=== PATIENT | male | born 1950 | race Asian ===

== ENCOUNTER 2019-10-28 22:38 | Inpatient (IN) | payer OTHER ==
[~2019-10-28] VITALS: Ht 167.6 cm; Wt 68.0 kg
--- NOTE | 2019-10-28 22:40 | NUR ---
TEMPERATURE CHECKED - 99.2 F, STILL AWAKE, KEEPS ON TALKING. DAUGHTER AT THE BEDSIDE.
[2019-10-28 22:45] VITALS: BP 119/74
--- NOTE | 2019-10-28 22:56 | NUR ---
PT BIBA TO BED 09.
--- NOTE | 2019-10-28 23:19 | NUR ---
69 Y/O MALE BIBA C/O SUDDEN ONSET ABD PAIN WHILE PT WAS SLEEPING. PER FAMILY MEMBER PT STATES 7/10 SHARP CONSTANT PAIN. DENIES N/V/D. PER FAMILY MEMBER PT WAS SEEN SUNDAY AT [facility] AND DIAGNOSED WITH SEPSIS. PT CURRENTLY TAKING CIPRO. ABD SOFT, ROUND, NONTENDER TO PALP. BOWEL SOUNDS PRESENT X 4 QUAD. PT SITTING IN BED POSITIONED FOR COMFORT. FAMILY MEMBER AT BEDSIDE. VSS. MEDHX: DM, CERVICAL INJURY ALLERGIES: ERYTHROMYCIN
[2019-10-28] MEDS ORDERED: NACL 0.9% 2,000 ML IV ONE (23:33)
[2019-10-28] MEDS ORDERED: PIPERACILLIN/TAZOBACTAM 3.375 GM in DEXTROSE 5% 50 ML IV ONE (23:35)
[2019-10-28] MEDS ORDERED: LEVOFLOXACIN 750 MG/D5W PREMIX 150 ML IV ONE (23:35)
--- NOTE | 2019-10-28 23:39 | NUR ---
Dr. Arthur examining patient.
[2019-10-29 00:06] LABS: BASOPHILS % (AUTO) 0.4 % (0.0-2.0); EOSINOPHILS # (AUTO) 0.9 K/uL (0-0.4); EOSINOPHILS % (AUTO) 8.3 % (0.0-4.0); HEMOGLOBIN 11.1 g/dL (12.0-18.0); LYMPHOCYTES # (AUTO) 1.8 K/uL (2.0-11.5); LYMPHOCYTES % (AUTO) 16.6 % (20.5-51.1); MEAN CORPUSCULAR HEMOGLOBIN 22 pg (27-31); MEAN CORPUSCULAR HGB CONC 31 g/dL (33-37); MEAN CORPUSCULAR VOLUME 70.6 fL (80-94); MONOCYTES # (AUTO) 0.8 K/uL (0.8-1.0); MONOCYTES % (AUTO) 7.2 % (1.7-9.3); NEUTROPHILS # (AUTO) 7.4 K/uL (1.8-7.7); NEUTROPHILS % (AUTO) 67.5 % (42.2-75.2); PLATELET COUNT (AUTO) 379 K/uL (140-450); RED CELL DISTRIBUTION WIDTH 15.2 % (11.6-13.7); WHITE BLOOD COUNT (AUTO) 10.9 K/uL (4.8-10.8)
[2019-10-29 00:24] LABS: ANION GAP 11.9 (8-16); CARBON DIOXIDE 28.6 mmol/L (21-32); CREATININE 1.3 mg/dL (0.7-1.3); POTASSIUM 4.5 mmol/L (3.5-5.1)
[2019-10-29 00:30] LABS: ALBUMIN 2.9 g/dL (3.4-5.0); TOTAL BILIRUBIN 0.2 mg/dL (0.0-1.0)
--- NOTE | 2019-10-29 00:33 | NUR ---
RESTING IN BED WITH EYES CLOSED, VISIBLE RISE AND FALL OF THE CHEST. PT AROUSABLE TO NAME. DAUGHTER AT BEDSIDE. VSS. WILL CONTINUE TO MONITOR
[2019-10-29 00:37] LABS: PROTHROMBIN TIME 10.8 secs (10.8-13.4)
--- NOTE | 2019-10-29 00:39 | NUR ---
RADIOLOGY AT BEDSIDE
[2019-10-29] MEDS ORDERED: PIPERACILLIN/TAZOBACTAM 3.375 GM VIAL IV ONE ×2 (00:41→07:28)
--- NOTE | 2019-10-29 01:08 | NUR ---
RESTING WITH EYES CLOSED, NO C/O PAIN AT THIS TIME. DAUGHTER AT BEDSIDE. PT REMAINS ON MONITOR. VSS. WILL CONTINUE TO MONITOR.
[2019-10-29 01:46] LABS: APPEARANCE,URINE SL CLOUDY (CLEAR); BILIRUBIN,URINE NEGATIVE (NEGATIVE); BLOOD, URINE TRACE-I (NEGATIVE); COLOR,URINE YELLOW (YELLOW); LEUKOCYTE ESTERASE ,URINE 3+ (NEGATIVE); NITRITE, URINE NEGATIVE (NEGATIVE); UGLUCOSE NEGATIVE (NEGATIVE)
--- NOTE | 2019-10-29 02:15 | NUR ---
RESTING IN BED WITH EYES CLOSED, VISIBLE RISE AND FALL OF THE CHEST. PT AROUSABLE TO NAME. DAUGHTER AT BEDSIDE. VSS. WILL CONTINUE TO MONITOR
[2019-10-29 02:48] LABS: WBC,URINE TOO MANY TO COUNT /HPF (0-5)
[2019-10-29] MEDS ORDERED: ZIPRASIDONE MESYLATE 20 MG/ML VIAL IM ONE (03:15)
[2019-10-29] MEDS ORDERED: LORazepam 2 MG/ML VIAL IVP ONE (03:15)
[2019-10-29] MEDS ORDERED: diphenhydrAMINE 50 MG/ML VIAL IVP ONE (03:15)
[2019-10-29] MEDS ORDERED: WATER STERILE 10 ML MC ONE (03:38)
--- NOTE | 2019-10-29 04:00 | NUR ---
PT AGITATED. ATIVAN AND BENADRYL GIVEN.
[2019-10-29] MEDS ORDERED: DOCUSATE SODIUM 100 MG GELCAP PO PRN (04:45)
[2019-10-29] MEDS ORDERED: ONDANSETRON 4 MG/2 ML VIAL IM/IVP PRN (04:45)
[2019-10-29] MEDS ORDERED: ACETAMINOPHEN 325 MG TAB PO PRN (04:45)
[2019-10-29] MEDS ORDERED: HYDROcodone/APAP 5/325 MG 1 TAB TAB PO PRN (04:45)
[2019-10-29] MEDS ORDERED: INSULIN LISPRO SLIDING SCALE 100 UNITS/ML VIAL SUBQ PRN (05:20)
[2019-10-29] MEDS ORDERED: DEXTROSE 50% 50 ML SYR IVP PRN (05:20)
[2019-10-29] MEDS ORDERED: BACL20TA4 PO (05:27)
[2019-10-29] MEDS ORDERED: PRAV20TA2 PO (05:27)
[2019-10-29] MEDS ORDERED: DIT5 PO (05:27)
[2019-10-29] MEDS ORDERED: GABA300C PO (05:27)
[2019-10-29] MEDS ORDERED: SENN-90 PO (05:27)
[2019-10-29] MEDS ORDERED: METF500T2 PO (05:27)
--- NOTE | 2019-10-29 05:54 | NUR ---
RESTING IN BED WITH EYES CLOSED, VISIBLE RISE AND FALL OF THE CHEST. PT AROUSABLE TO NAME. DAUGHTER AT BEDSIDE. VSS. WILL CONTINUE TO MONITOR
--- NOTE | 2019-10-29 07:20 | NUR ---
PT HAS ALMANZA IN PLACE, PER RAVINDRA RN-ALMANZA INSERTED IN ER
--- NOTE | 2019-10-29 07:22 | NUR ---
BEDSIDE REPORT GIVEN TO PB KEYS. FOR CONTINUITY OF CARE.
[2019-10-29] MEDS: NACL 0.9% 1,000 ML IV SCH ×2 (07:30→21:40)
[2019-10-29] MEDS ORDERED: NACL 0.9% 1,000 ML IV ONE (07:35)
--- NOTE | 2019-10-29 07:43 | NUR ---
ACCU CHECK 120
--- NOTE | 2019-10-29 07:43 | NUR ---
PT SLEEPING. DAUGHTER BEDSIDE. NO DISTRESS NOTED. BOLUS STARTED
[2019-10-29] MEDS: BLOOD GLUCOSE MONITORING 1 DEV DEV FS SCH ×4 (07:44→21:00)
[2019-10-29] MEDS: PIPERACILLIN/TAZOBACTAM 3.375 GM in DEXTROSE 5% 50 ML IV SCH ×2 (08:00→15:44)
--- NOTE | 2019-10-29 08:27 | NUR ---
SACRAL PRESSURE WOUND NOTED UPON RE-POSITIONG PT. PICTURES TAKEN. PT NOTES TO HAVE A BRUISE TO L THIGH
[2019-10-29 08:38] LABS: MAGNESIUM 2.1 mg/dL (1.8-2.4); THYROID STIMULATING HORMONE 2.36 uIU/mL (0.34-3.74)
--- NOTE | 2019-10-29 09:08 | NUR ---
CALLED PHARMACY FOR 0900 MEDICATIONS
--- NOTE | 2019-10-29 09:15 | NUR ---
MORNING EDICATIONS CRUSHED AND GIVEN WITH APPLESAUCE. PT STILL VERY SLEEPY. PT TOLERATED WELL
[2019-10-29] MEDS ORDERED: CRUSHER, PILL MC ONE (09:27)
[2019-10-29] MEDS: LACTOBACILLUS RHAMNOSUS GG 1 EACH CAP PO SCH (09:30)
[2019-10-29] MEDS: SENNA 8.6 MG TAB PO SCH (09:30)
[2019-10-29] MEDS: OXYBUTYNIN 5 MG TAB PO SCH ×2 (09:31→21:20)
[2019-10-29] MEDS: GABAPENTIN 300 MG CAP PO SCH ×4 (09:31→21:21)
--- NOTE | 2019-10-29 09:49 | NUR ---
NADR, PAIN 0/10 USING FACE SCALE
--- NOTE | 2019-10-29 09:56 | NUR ---
RT AT BEDSIDE FOR EKG
--- NOTE | 2019-10-29 10:24 | NUR ---
CALLED US , STATES SHE WILL BE RIGHT OVER
--- NOTE | 2019-10-29 10:34 | NUR ---
US AT BEDSIDE
--- NOTE | 2019-10-29 10:46 | NUR ---
CONTACT DAUGHTERS: LIZY: [phone] NAYAN: [phone]
--- NOTE | 2019-10-29 11:01 | NUR ---
PUREE DIET ORDERED, CALLED DIETARY
--- NOTE | 2019-10-29 11:17 | NUR ---
ACCUCCHECK 120, PT EATING UPRIGHT IN BED. PUREE DIET
--- NOTE | 2019-10-29 12:30 | NUR ---
PT ADMITTED FROM ER AT THIS TIME. PT IN STABLE CONDITION AAOX3, COMING FROM HOME. PT VERY COMBATIVE. SPEAKS TAGALOG. RESPIRATIONS EVEN AND UNLABORED ON 2L O2 NC, CLEAR BREATH SOUNDS. IV IN PLACE L AC 20G PATENT AND ASYMPTOMATIC, SALINE FLUSHED. SKIN PRESENTS REDNESS IN SACRAL AREA. ALMANZA CATHETER IN PLACE. DAUGHTER AT THE BEDSIDE. SAFETY MEASURES IN PLACE. BED IN LOW POSITION. CALL LIGHT WITHIN REACH. WILL CONTINUE TO MONITOR.
--- NOTE | 2019-10-29 12:30 | NUR ---
Patient will be admitted to care of ARNOLD. Admited to TELE. Will go to room 122B. Belongings list completed. Report to MISSY KEYS. NACL 60MLS/HR RUNNING UPON ADMIT
[2019-10-29] MEDS: BACLOFEN 10 MG TAB PO SCH ×3 (13:00→21:21)
[2019-10-29 13:05] LABS: AMYLASE 53 U/L (25-115); LIPASE 110 U/L (73-393)
--- NOTE | 2019-10-29 14:34 | NUR ---
PT REFUSED SCHEDULED PO MEDICATIONS AT THIS TIME.
--- NOTE | 2019-10-29 15:48 | NUR ---
ADMINISTERED ZOSYN AT THIS TIME. PT COMBATIVE. DAUGHTER AT THE BEDSIDE. SAFETY MEASURES IN PLACE. CALL LIGHT WITHIN REACH. WILL CONTINUE TO MONITOR.
[2019-10-29 16:00] VITALS: BP 129/45
--- NOTE | 2019-10-29 16:38 | NUR ---
PT REFUSED BLOOD GLUCOSE MONITORING AT THIS TIME.
--- NOTE | 2019-10-29 18:02 | NUR ---
MEDICATIONS ADMINISTERED PER ORDER. PT TOLERATED WELL. NO DISTRESS NOTED. SAFETY MEASURES IN PLACE. CALL LIGHT WITHIN REACH. WILL CONTINUE TO MONITOR.
--- NOTE | 2019-10-29 19:00 | NUR ---
REPORT GIVEN TO NIGHT NURSE FOR CONTINUITY OF CARE.
--- NOTE | 2019-10-29 19:00 | NUR ---
RECIEVED REPORT FORM JAZMIN KEYS DAYSHIFT NURSE AT BEDSIDE FOR CONTINUITY OF CARE,PT IN STABLE CONDITION.
[2019-10-29 20:00] VITALS: BP 139/98
--- NOTE | 2019-10-29 20:00 | NUR ---
PT AOX1 IN BED HE WAS TURNED AND REPOSITIONED IN BED. PT HAS ALMANZA CATHETER INTACT AND DRAINING YELLOW URINE. S FOLLOWS: T 98.0 P 100 R 98% ON 2 LITERS VIA N/C. LUNG SOUNDS CLEAR. B/P 142/98 02 99% ON ROOM AIR. FAMILY AT BEDSIDE.
[2019-10-29] MEDS ORDERED: NON-FORMULARY ITEM (Pravastatin Sodium* (Pravachol*) 20 MG) PO SCH (21:00)
--- NOTE | 2019-10-29 21:00 | NUR ---
PT IN BED GIVEN ALL DUE MEDS PO W APPLESAUCE.
--- NOTE | 2019-10-29 22:20 | NUR ---
pt placed on CPAP of 5 cmh20. pt is tolerating cpap well. family at bedside. will continue to monitor. rn is aware.
[2019-10-30] VITALS: BP 142/98
--- NOTE | 2019-10-30 | NUR ---
PT HUNG ZOSYN ORDERED V/S FOLLOWS: T 97.1 P 99 R 99 02 99 B/P 142/98 . PT CONTINUES ON 2 LITERS VIA N/C. ALL FALLS PRECAUTIONS IN PLACE AND CALL MCCARTNEY IN REACH.
[2019-10-30] MEDS: PIPERACILLIN/TAZOBACTAM 3.375 GM in DEXTROSE 5% 50 ML IV SCH ×4 (00:18→23:35)
[2019-10-30] MEDS ORDERED: HYDRAGUARD CREAM TP ONE ×2 (01:00→06:32)
[2019-10-30] MEDS ORDERED: BISACODYL 10 MG SUPP RC PRN (01:00)
--- NOTE | 2019-10-30 02:30 | NUR ---
PT WAS TURNED, CHANGED AND REPOSITIONED IN BED NO S/O VOICED, PT CONTINUES ON C-PAPA.
[2019-10-30 04:00] VITALS: BP 114/75
--- NOTE | 2019-10-30 05:14 | NUR ---
pt taken of cpap and placed on nasal cannula of 2lnc
--- NOTE | 2019-10-30 06:00 | NUR ---
PT FINGERSTICK IS 129, NO HUMALOG COVERAGE NEEDED.ALL FALLS PRECAUTIONS IN PLACE AND CALL MCCARTNEY IN REACH.
[2019-10-30 06:06] LABS: BASOPHILS % (AUTO) 0.3 % (0.0-2.0); EOSINOPHILS # (AUTO) 0.7 K/uL (0-0.4); EOSINOPHILS % (AUTO) 6.9 % (0.0-4.0); HEMATOCRIT 33.5 % (36-52); HEMOGLOBIN 10.5 g/dL (12.0-18.0); LYMPHOCYTES # (AUTO) 1.8 K/uL (2.0-11.5); LYMPHOCYTES % (AUTO) 16.4 % (20.5-51.1); MEAN CORPUSCULAR HEMOGLOBIN 22 pg (27-31); MEAN CORPUSCULAR HGB CONC 31 g/dL (33-37); MONOCYTES # (AUTO) 0.9 K/uL (0.8-1.0); MONOCYTES % (AUTO) 8.7 % (1.7-9.3); NEUTROPHILS # (AUTO) 7.3 K/uL (1.8-7.7); NEUTROPHILS % (AUTO) 67.7 % (42.2-75.2); PLATELET COUNT (AUTO) 344 K/uL (140-450); RED BLOOD CELL COUNT(AUTO) 4.78 MIL/uL (4.20-6.10); RED CELL DISTRIBUTION WIDTH 15.5 % (11.6-13.7); WHITE BLOOD COUNT (AUTO) 10.7 K/uL (4.8-10.8)
[2019-10-30] MEDS: BLOOD GLUCOSE MONITORING 1 DEV DEV FS SCH ×4 (06:30→20:59)
[2019-10-30 06:49] LABS: ANION GAP 17.2 (8-16); CARBON DIOXIDE 22.7 mmol/L (21-32); CREATININE 1.4 mg/dL (0.7-1.3); POTASSIUM 3.9 mmol/L (3.5-5.1)
[2019-10-30 06:56] LABS: MAGNESIUM 1.9 mg/dL (1.8-2.4); PHOSPHORUS 2.4 mg/dL (2.5-4.9)
--- NOTE | 2019-10-30 07:15 | NUR ---
RECEIVED REPORT FROM FLUORESCENT SOLUTION MIXER NURSE RAMON FOR CONTINUITY OF CARE. PT IN STABLE CONDITION. RESPIRATIONS EVEN AND UNLABORED. IV INTACT AND PATENT. SAFETY MEASURES IN PLACE. BED IN LOW POSITION. BED ALARM ON. CALL LIGHT AT BEDSIDE. WILL CONTINUE TO MONITOR.
[2019-10-30 08:00] VITALS: BP 132/71
[2019-10-30] MEDS ORDERED: metFORMIN 500 MG TAB PO SCH (09:00)
--- NOTE | 2019-10-30 09:45 | NUR ---
GAVE ORDERED DUE MEDICATIONS AT THIS TIME. PT TOLERATED WELL. BED IN LOW POSITION. BED ALARM ON. CALL LIGHT AT BEDSIDE. WILL CONTINUE TO MONITOR.
[2019-10-30] MEDS: GABAPENTIN 300 MG CAP PO SCH ×4 (09:48→20:41)
[2019-10-30] MEDS: BACLOFEN 10 MG TAB PO SCH ×4 (09:49→20:41)
[2019-10-30] MEDS: SENNA 8.6 MG TAB PO SCH (09:49)
[2019-10-30] MEDS: LACTOBACILLUS RHAMNOSUS GG 1 EACH CAP PO SCH (09:49)
[2019-10-30] MEDS: OXYBUTYNIN 5 MG TAB PO SCH ×2 (09:49→20:41)
--- NOTE | 2019-10-30 10:14 | NUR ---
CHANGED LINEN AND CLEANED PT AT THIS TIME. PT TOLERATED WELL. RESPIRATIONS EVEN AND UNLABORED. BED IN LOW POSITION. BED ALARM ON. CALL LIGHT AT BEDSIDE. WILL CONTINUE TO MONITOR.
[2019-10-30 12:00] VITALS: BP 129/79
--- NOTE | 2019-10-30 12:48 | NUR ---
PT EATING LUNCH WITH ASSIST AT THIS TIME. RESPIRATIONS EVEN AND UNLABORED. BED IN LOW POSITION. BED ALARM ON. CALL LIGHT AT BEDSIDE. WILL CONTINUE TO MONITOR.
[2019-10-30] MEDS ORDERED: SODIUM PHOS / POTASSIUM PHOS 1 PKT PDR PO SCH (14:00)
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
--- NOTE | 2019-10-30 14:12 | NUR ---
PT SITTING UP IN BED TALKING TO FAMILY MEMBER. RESPIRATIONS EVEN AND UNLABORED. BED IN LOW POSITION. BED ALARM ON. CALL LIGHT AT BEDSIDE. WILL CONTINUE TO MONITOR.
[2019-10-30] MEDS: NACL 0.9% 1,000 ML IV SCH (15:13)
--- NOTE | 2019-10-30 15:31 | NUR ---
10/30/19 RD INITIAL ASSESSMENT COMPLETED PLEASE REFER TO NUTRITION ASSESSMENT UNDER CARE ACTIVITY FOR ESTIMATED NUTRITIONAL NEEDS. 1. RECOMMEND A [facility] 60GM PUREE DIET TOLERATED 2. RD TO FOLLOW-UP 3-5 DAYS, MODERATE RISK CINDY KUMAR RD
[2019-10-30 16:00] VITALS: BP 114/58
--- NOTE | 2019-10-30 16:58 | NUR ---
PT SITTING UP IN BED TALKING WITH FAMILY MEMBER. RESPIRATIONS EVEN AND UNLABORED. BED IN LOW POSITION. BED ALARM ON. CALL LIGHT AT BEDSIDE. WILL CONTINUE TO MONITOR.
--- NOTE | 2019-10-30 19:36 | NUR ---
GAVE REPORT TO MASTER PLANNER NURSE MYAH FOR CONTINUITY OF CARE. PT IN STABLE CONDITION.
--- NOTE | 2019-10-30 19:37 | NUR ---
RECD. SITTING ON BED, AWAKE, A/OX4. ON AT 2LITERS VIA N/C. 02 SAT - 99%. RESPIRATION EVEN AND UNLABORED. TALKS A LOT. RIGHT HAND CONTRACTED. NS AT 60 ML/HR INFUSING, LEFT AC G20. F/C PATENT DRAINING CLEAR CHRIS COLORED URINE, BEDBOUND. PLAN OF CARE FOR THE SHIFT DISCUSSED. VERBALIZED UNDERSTANDING. DENIES PAIN 0/10.
[2019-10-30 20:00] VITALS: BP 97/49
--- NOTE | 2019-10-30 20:30 | NUR ---
WITH CONFUSION, SEEING THINGS IN THE MIRROR. FAMILY AT THE BEDSIDE.
[2019-10-30] MEDS: SIMVASTATIN 10 MG TAB PO SCH (20:40)
--- NOTE | 2019-10-30 20:40 | NUR ---
TEMPERATURE CHECKED - 101.5 F, MEDICATED WITH TYLENOL ORDERED BY MD. COOLING MEASURES GIVEN.
--- NOTE | 2019-10-30 23:36 | NUR ---
ADMINISTERED SCHEDULED IV ABX ORDERED. RT AT BEDSIDE, PT ON BIPAP STATING HE COULD BREATHE BETTER. PT FAMILY MEMBER AT BEDSIDE, PT TEACHING GIVEN, FAMILY MEMBER VERBALIZED UNDERSTANDING, PT STILL A LITTLE CONFUSED CONVERSES MORE CLEAR NOW. PT MADE COMFORTABLE, PT'S NEEDS MET AT THIS TIME.
--- NOTE | 2019-10-30 23:39 | NUR ---
Patient's Plan of Care was discussed and reviewed with TRACK SERVICE WORKER: MYAH CAROLINA.
[2019-10-31] VITALS (7 sets, daily range): BP systolic 87–137; BP diastolic 43–65
--- NOTE | 2019-10-31 | NUR ---
SLEEPING COMFORTABLY WITH BIPAP ON. NO FEVER NOTED 98.6 F.
--- NOTE | 2019-10-31 00:32 | NUR ---
CHANGED MODE FROM CPAP TO BiPAP BECAUSE PT STOPS AND STARTS BREATHING DURING SLEEP. FAMILY AND RN AT BEDSIDE. DR. SELF WAS NOTIFIED.
[2019-10-31] MEDS: NACL 0.9% 1,000 ML IV SCH ×3 (02:37→19:57)
--- NOTE | 2019-10-31 03:21 | NUR ---
INCREASED IPAP TO 10 CMH20 DUE TO LOW TIDAL VOLUMES LESS THAN 200S AND MINUTE VENTILATION LESS THAN 3L/MIN
--- NOTE | 2019-10-31 04:00 | NUR ---
STILL SLEEPING SOUNDLY WITH BIPAP ON. AFEBRILE - 97.8 F.
[2019-10-31] MEDS ORDERED: Z-GUARD PASTE TP PRN (04:05)
[2019-10-31] MEDS ORDERED: MILD SOAP AND WATER TP PRN (04:05)
[2019-10-31 05:58] LABS: BASOPHILS # (AUTO) 0.1 K/uL (0.00-0.22); BASOPHILS % (AUTO) 0.5 % (0.0-2.0); EOSINOPHILS # (AUTO) 0.7 K/uL (0-0.4); EOSINOPHILS % (AUTO) 5.2 % (0.0-4.0); HEMATOCRIT 31.7 % (36-52); HEMOGLOBIN 9.6 g/dL (12.0-18.0); LYMPHOCYTES # (AUTO) 2.9 K/uL (2.0-11.5); LYMPHOCYTES % (AUTO) 20.5 % (20.5-51.1); MEAN CORPUSCULAR HEMOGLOBIN 22 pg (27-31); MEAN CORPUSCULAR HGB CONC 30 g/dL (33-37); MEAN CORPUSCULAR VOLUME 71.3 fL (80-94); MONOCYTES # (AUTO) 1.4 K/uL (0.8-1.0); MONOCYTES % (AUTO) 10.3 % (1.7-9.3); NEUTROPHILS # (AUTO) 8.9 K/uL (1.8-7.7); NEUTROPHILS % (AUTO) 63.5 % (42.2-75.2); PLATELET COUNT (AUTO) 289 K/uL (140-450); RED BLOOD CELL COUNT(AUTO) 4.44 MIL/uL (4.20-6.10); RED CELL DISTRIBUTION WIDTH 15.6 % (11.6-13.7)
[2019-10-31] MEDS: BLOOD GLUCOSE MONITORING 1 DEV DEV FS SCH ×4 (06:37→20:10)
[2019-10-31] MEDS: PIPERACILLIN/TAZOBACTAM 3.375 GM in DEXTROSE 5% 50 ML IV SCH (06:49)
--- NOTE | 2019-10-31 07:00 | NUR ---
STILL SLEEPING COMFORTABLY. ABLE TO SLEEP WELL DURING THE NIGHT. AFEBRILE AT THIS TIME. WILL ENDORSE TO AM SHIFT NURSE FOR CONTINUITY OF CARE.
[2019-10-31 07:09] LABS: ANION GAP 13.2 (8-16); CARBON DIOXIDE 25.8 mmol/L (21-32); CREATININE 1.6 mg/dL (0.7-1.3)
[2019-10-31 07:15] LABS: MAGNESIUM 1.9 mg/dL (1.8-2.4); PHOSPHORUS 5.1 mg/dL (2.5-4.9)
--- NOTE | 2019-10-31 07:25 | NUR ---
RECEIVED REPORT FROM FURNACE PROCESS PLANT OPERATOR NURSE AT BEDSIDE FOR CONTINUITY OF CARE. PATIENT CURRENTLY ON BIBAP SLEEPING COMFORTABLY. 02 SAT - 99%. RESPIRATION EVEN AND UNLABORED. RIGHT HAND CONTRACTED. NO S/S OF SOB OR DISTRESS NOTED, FLACC-0. IV TO LEFT AC #20, INFUSING NS AT 80 ML/HR INFUSING. F/C PATENT DRAINING TO GRAVITY WITH CLEAR YELLOW URINE. PATIENT IS BEDBOUND, DAUGHTER LIZY AT BEDSIDE. UPDATED BOARD, UPDATED DAUGHTER WITH PLAN OF CARE, SHE VERBALIZED UNDERSTANDING. SAFETY PRECAUTIONS IN PLACE, BED IN LOWEST POSITION WITH ALARM AND BRAKES ON, CALL LIGHT WITHIN REACH, WILL CONTINUE TO MONITOR PATIENT.
--- NOTE | 2019-10-31 08:25 | NUR ---
PATIENT UNRESPONSIVE, HARD TO AWAKEN AFTER TAKEN OFF BIBAP SO PATIENT CAN EAT BREAKFAST. CALLED DR. BOUDREAUX. DR. BOUDREAUX AT BEDSIDE TO ASSESS THE PATIENT. HR 63, O2 100% ON 2L O2 VIA NC, BP 89/60, TEMP 97.6. PATIENT FLINCHES TO PAIN. FAMILY AT BEDSIDE. WILL WAIT FOR NEW ORDERS.
[2019-10-31] MEDS ORDERED: NACL 0.9% 500 ML IV SCH (08:45)
[2019-10-31] MEDS: SENNA 8.6 MG TAB PO SCH (09:00)
[2019-10-31] MEDS ORDERED: WOUND CARE PREPARATION 178 ML SPR TP SCH (09:00)
[2019-10-31] MEDS: LACTOBACILLUS RHAMNOSUS GG 1 EACH CAP PO SCH (09:00)
[2019-10-31] MEDS: OXYBUTYNIN 5 MG TAB PO SCH ×2 (09:00→20:07)
--- NOTE | 2019-10-31 09:00 | NUR ---
0900 MEDICATIONS NOT GIVEN. PATIENT STILL ONLY AROUSABLE TO STERNAL RUB. OPENS EYES SPONTANEOUSLY AT DIFFERENT INTERVALS, MOVES BILATERAL UPPER EXTREMITIES FOR A FEW SECONDS THEN DRIFTS OFF BACK TO SLEEP. BP 127/58 HR 63. DAUGHTERS AND AT BEDSIDE, WILL CONTINUE TO MONITOR PATIENT.
--- NOTE | 2019-10-31 09:00 | NUR ---
P.T.NOTES UNABLE TO DO P.T. EVAL AT THIS TIME DUE TO PATIENT IS UNRESPONSIVE PER NURSE [place]. PLAN: WE'LL FOLLOW UP AGAIN WHEN HE IS MORE AWAKE AND ALERT.
--- NOTE | 2019-10-31 09:30 | NUR ---
DR BOUDREAUX IN TO SPEAK TO THE PATIENT'S FAMILY.
--- NOTE | 2019-10-31 10:15 | NUR ---
PATIENT WOKE UP, SPEECH WAS INCOMPREHENSIBLE, THEN DRIFTED OFF BACK TO SLEEP. FAMILY AT BEDSIDE. PATIENT HAS NO COMPLAINTS AT THIS TIME. SAFETY PRECAUTIONS IN PLACE, CALL LIGHT WITHIN REACH, WILL CONTINUE TO MONITOR PATIENT.
--- NOTE | 2019-10-31 11:30 | NUR ---
WOUND CARE EVALUATION NOTES: REASON FOR EVALUATION: SACRAL WOUND WOUND ASSESSMENT COMPLETED ON THIS 69 Y/O MALE ADMITTED TO [facility] UNIT FOR UTI. PATIENT IS FROM HOME. PAST MEDICAL HISTORY INCLUDES SPINAL CORD INJURY WITH PARAPLEGIA, CHRONIC UTI, DIABETES, OBSTRUCTIVE SLEEP APNEA, DYSPEPSIA, URINARY RETENTION, RENAL STONES. ALL ABOVE INFORMATION WAS OBTAINED FROM THE ADMISSION H&P. LABS ARE WBC: 14.0, H/H:9.6/31.7, GLUCOSE:147, ALBUMIN: 2.9. PATIENT IS AWAKE, ALERT, ORIENTED TO PERSON, VERBAL WITH CONFUSION AT THIS TIME, ORAL MUCOSAL MEMBRANES DRY. ALMANZA CATHETER IN PLACE, INTACT. REQUIRES ASSISTANCE WITH TURNING. PLAN OF CARE AND PRESSURE PREVENTATIVE MEASURES DISCUSSED WITH PATIENT, FAMILY MEMBERS AT BEDSIDE, AND WITH PRIMARY RN. PATIENT ADMITTED WITH SACRAL WOUND INCONTINENT ASSOCIATED DERMATITIS AND RIGHT THIGH INCONTINENT ASSOCIATED DERMATITIS. COMORBIDITIES RELATED TO FURTHER SKIN BREAKDOWN SUCH IMPAIRED OR DECREASED MOBILITY AND DECREASED FUNCTIONAL ABILITY, LOW ALBUMIN LEVEL, S/S OF DEHYDRATION, AND HX OF DM. INTEGUMENTARY: - SACROCOCCYX INCONTINENT ASSOCIATED DERMATITIS MEASURING 6 X 9 WITH SUPERFICIAL DEPTH, BLANCHABLE REDNESS, MINIMAL SEROUS DRAINAGE, NO ODOR, NO S/S OF INFECTION. EZRA-WOUND SKIN IS DENUDED, RED, NO DRAINAGE, NO ODOR, NO S/S OF INFECTION. - RIGHT POSTERIOR THIGH INCONTINENT ASSOCIATED DERMATITIS MEASURING 5 X 4 WITH SUPERFICIAL DEPTH, BLANCHABLE REDNESS, NO DRAINAGE, NO ODOR, NO S/S OF INFECTION. EZRA-WOUND SKIN IS DENUDED, RED, NO DRAINAGE, NO ODOR, NO S/S OF INFECTION. RECOMMENDATIONS: - CLEANSE SACROCOCCYX IAD WOUND WITH WOUND CLEANSER, PAT DRY, APPLY Z-GUARD TO EZRA-WOUND SKIN, AND COVER WITH OPTIFOAM BID AND PRN IF SOILED. - CLEANSE RIGHT POSTERIOR THIGH WOUND WITH WOUND CLEANSER, PAT DRY, APPLY Z-GUARD TO EZRA-WOUND SKIN, AND LEAVE OPEN TO AIR BID AND PRN IF SOILED. - TURN AND REPOSITION PATIENT Q2H TO LEFT AND RIGHT SIDE TO OFFLOAD SACRALCOCCYX. - ASSESS AND MONITOR SKIN CONDITION DURING POSITION CHANGE. PLEASE PAY ATTENTION TO SACRALCOCCYX AND HEELS. - KEEP SKIN DRY AND CLEAN AT ALL TIMES. - RD CONSULT RECOMMENDATIONS DISCUSSED WITH PRIMARY RN AND DR. BOUDREAUX. WILL FOLLOW-UP PAITENT Q7-10 DAYS AND PRN. PLEASE CONTACT WOUND CARE NURSE FOR ANY CONCERNS AND CHANGES IN WOUND CONDITION.
--- NOTE | 2019-10-31 11:40 | NUR ---
OPERATIONS SECTION MANAGER ISHAAN IN TO EVALUATE PATIENT. WILL WAIT FOR HIS ASSESSMENT.
[2019-10-31] MEDS: PIPERACILLIN/TAZOBACTAM 2.25 GM in DEXTROSE 5% 50 ML IV SCH ×2 (12:32→20:16)
--- NOTE | 2019-10-31 13:45 | NUR ---
PATIENT GIVEN SPONGE BATH, PATIENT TURNED AND CHANGED, PATIENT REPOSITIONED FOR COMFORT AND TO OFFLOAD PRESSURE AREAS. AND DAUGHTER AT BEDSIDE. WILL CONTINUE TO MONITOR PATIENT.
--- NOTE | 2019-10-31 14:10 | NUR ---
ORAL CARE GIVEN. PATIENT TOLERATED IT. THICK SECRETIONS NOTED. AT BEDSIDE.
--- NOTE | 2019-10-31 14:30 | NUR ---
SPOKE TO YOUSUF, PASSED ON DAUGHTER'S AMMY'S PHONE NUMBER, PATIENT' DAUGHTER WANTED TO SPEAK TO YOUTH MINISTER OR CASE MANAGEMENT ABOUT DISCHARGE PLANNING.
--- NOTE | 2019-10-31 17:00 | NUR ---
BLOOD SUGAR 113, NO COVERAGE NEEDED. PATIENT STILL CONFUSED, HAS OUTBURSTS IN TAGALOG, THEN SILENCE. SAFETY PRECAUTIONS IN PLACE, CALL LIGHT WITHIN REACH, WILL CONTINUE TO MONITOR PATIENT.
--- NOTE | 2019-10-31 19:25 | NUR ---
REPORT GIVEN AT BEDSIDE FOR CONTINUITY OF CARE TO SCRUFF WORKER NURSE. PATIENT'S AT BEDSIDE.
--- NOTE | 2019-10-31 19:30 | NUR ---
RECEIVED IN BED CONFUSED. TALKING WITH PEOPLE NOT AROUND. SHOUTING AND SHOUTING TO IMAGINARY PEOPLE. CARE PLANS FOR THE NIGHT DISCUSSED WITH FAMILY MEMBERS( AND DAUGHTERS) CALL LIGHT WITH IN REACH. TELEMETRY MONITORING. IVF SITE INTACT AND WITH GOOD BLOOD RETURN. WILL BE TURNED TO SIDES Q 2H. ENCOURAGED FAMILY MEMBERS TO KEEP PT. ON TURNED SIDE.
[2019-10-31] MEDS: SIMVASTATIN 10 MG TAB PO SCH (20:07)
--- NOTE | 2019-10-31 22:30 | NUR ---
PT. SLEEPS AND WAKES UP EASILY. DAUGHTERS AND IN HERE ATTENDING TO PT. NO COMPLAINTS DONE.
[2019-11-01] VITALS: BP 149/78
[2019-11-01] MEDS: WOUND CARE PREPARATION 178 ML SPR TP SCH ×2 (01:00→13:00)
[2019-11-01] MEDS: Z-GUARD PASTE TP SCH ×2 (01:47→13:00)
--- NOTE | 2019-11-01 01:59 | NUR ---
DAUGHTER AT BEDSIDE WATCHING OVER FATHER/PT. NO COMPLAINTS DONE. PT. TURNED TO SIDES Q 2H BY CNAS. ENCOURAGED TO STAY ON SIDE TURNED. PT. AT THIS TIME AWAKE AND CONFUSED. TALKING AND TALKING WITH IMAGINARY PEOPLE AROUND. CALL LIGHT WITH INREACH. ENCOURAGED TO CALL FOR ANY HELP SHE MIGHT NEED. TELEMETRY MONITORING.
--- NOTE | 2019-11-01 04:00 | NUR ---
PT. BEEN TALKING AND TALKING. SLEEPS ONLY A LITTLE AND WAKES UP FOR A LONG TIME. CONFUSED. DAUGHTER AT BEDSIDE WATCHING OVER HIM. TELEMETRY MONITORING. PT. REFUSED TO BE TOUCHED AT THIS TIME. REFUSING VITAL SIGNS. DAUGHTER TRIED TO EXPLAIN BUT PT. REALLY VERY CONFUSED AND USES ARMS TO PUSH MOLD FORMS BUILDER.
[2019-11-01] MEDS: PIPERACILLIN/TAZOBACTAM 2.25 GM in DEXTROSE 5% 50 ML IV SCH ×3 (05:12→20:34)
[2019-11-01] MEDS: BLOOD GLUCOSE MONITORING 1 DEV DEV FS SCH ×4 (05:19→20:50)
--- NOTE | 2019-11-01 06:26 | NUR ---
BLOOD WORKS NOT TAKEN BY AUTO CARE CENTER MANAGER RT PT. VERY CONFUSED AND AGGRESSIVE. TRIES TO PUSH CARE GIVERS AWAY. DAUGHTER AT BEDSIDE AND AWARE THAT BLOOD NOT TAKEN. "LET'S WAIT TILL MY SISTER IS HERE TO TALK TO HIM"
--- NOTE | 2019-11-01 07:20 | NUR ---
RECEIVE REPORT FROM NIGHT NURSE, PT AA0X2, PT CONFUSED AND UPSET, PT'S DAUGHTER AT BEDSIDE, PT IV SITE INTACT, RUNNING, NS AT 80 ML/H, LAC 22G, UPDATE WHITEBOARD AND INTRODUCE SELF, SAFETY MEASURES IN PLACE, CALL LIGHT WITHIN REACH.
[2019-11-01 08:00] VITALS: BP 177/87
[2019-11-01] MEDS: LACTOBACILLUS RHAMNOSUS GG 1 EACH CAP PO SCH (09:00)
[2019-11-01] MEDS: OXYBUTYNIN 5 MG TAB PO SCH ×2 (09:03→20:34)
[2019-11-01] MEDS: SENNA 8.6 MG TAB PO SCH (09:03)
[2019-11-01] MEDS: NACL 0.9% 1,000 ML IV SCH ×3 (09:04→23:40)
[2019-11-01] MEDS ORDERED: BISACODYL 10 MG SUPP RC PRN (09:40)
--- NOTE | 2019-11-01 10:00 | NUR ---
PT OFF UNIT FOR CT, PT IS STABLE, DAUGHTER ACCOMPANY PHARMACY RESIDENT.
--- NOTE | 2019-11-01 10:34 | NUR ---
GAVE PT MEDICATION, PT TOLERATED WELL, PT IS STABLE, DAUGHTER AT BEDSIDE, CALL WITHIN REACH.
--- NOTE | 2019-11-01 11:09 | NUR ---
PT ASLEEP IN BED, NO SIGNS OF DISTRESS NOTED, RESPIRATIONS ARE EVEN AND UNLABORED ON 2L NC, DAUGHTER AT BEDSIDE, CALL LIGHT WITHIN REACH.
[2019-11-01 12:00] VITALS: BP 158/79
--- NOTE | 2019-11-01 13:00 | NUR ---
PT IS STABLE, NO SIGNS OF DISTRESS NOTED, FAMILY AT BEDSIDE, CALL LIGHT WITHIN REACH.
--- NOTE | 2019-11-01 15:05 | NUR ---
PT RESTING IN BED, TALKING TO HIS FAMILY MEMBER, PT IS STABLE, RESPIRATIONS ARE EVEN AND UNLABORED ON ROOM AIR, CALL LIGHT WITHIN REACH.
[2019-11-01 16:00] VITALS: BP 148/72
--- NOTE | 2019-11-01 19:05 | NUR ---
GAVE REPORT TO NIGHT NURSE FOR CONTINUITY OF CARE, PT IS STABLE.
--- NOTE | 2019-11-01 19:30 | NUR ---
RECEIVED BEDSIDE REPORT FROM AM SHIFT RN FOR PT'S CONTINUITY OF CARE. PT IS AAOX1, FAMILY MEMBERS AT BEDSIDE, IS ON SENIOR JAVA ENGINEER, IS ON 2L O2 VIA NC, HAS LEFT AC 20G WITH NS AT 80ML/HR, ALMANZA CATH IN PLACE, DENIES ANY PAIN AT THIS TIME. REORIENTED PT AND FAM MEMBERS TO HOSPITAL SURROUNDINGS AND GLASS SCULLION ROUTINE, THEY VERBALIZED UNDERSTANDING. SAFETY MEASURES IN PLACE, AND CALL LIGHT IS WITHIN REACH. WILL MONITOR PT THROUGHOUT SHIFT.
[2019-11-01 20:00] VITALS: BP 120/63
[2019-11-01] MEDS: SIMVASTATIN 10 MG TAB PO SCH (20:34)
--- NOTE | 2019-11-01 20:50 | NUR ---
VS CHECKED AND CHARTED. BLOOD GLUCOSE CHECKED AND CHARTED. NO COVERAGE NEEDED. ADMINISTERED SCHEDULED MEDICATIONS ORDERED, PT TOLERATED THEM WELL. PT TEACHING GIVEN. WILL CONTINUE TO MONITOR PT.
--- NOTE | 2019-11-01 22:30 | NUR ---
MADE ROUNDS. PT AWAKE TALKING TO FAMILY MEMBERS. PT SHOWS NO SIGNS OF DISTRESS. WILL CONTINUE TO MONITOR PT.
[2019-11-02] VITALS: BP 168/75
--- NOTE | 2019-11-02 00:30 | NUR ---
VS CHECKED AND CHARTED. PT STILL AWAKE WITH NO SIGNS OF DISTRESS. PT STILL CONFUSED, REORIENTED TO HOSPITAL ENVIRONMENT. PT VERBALIZED UNDERSTANDING.
[2019-11-02] MEDS: Z-GUARD PASTE TP SCH ×2 (01:22→13:00)
--- NOTE | 2019-11-02 01:22 | NUR ---
PER PT'S DAUGHTER, PT HAS NOT HAD ANY BM SINCE 10/28. NOTIFIED MD. ADMINISTERED SCHEDULED MEDICATIONS ORDERED. PT'S LINENS CHANGED AND REPOSITIONED. PT TOLERATED THEM WELL. PT TEACHING GIVEN ALONG WITH FAMILY MEMBERS, THEY VERBALIZED UNDERSTANDING. WILL CONTINUE TO MONITOR PT.
[2019-11-02] MEDS: WOUND CARE PREPARATION 178 ML SPR TP SCH ×2 (01:23→13:00)
[2019-11-02] MEDS ORDERED: POLYETHYLENE GLYCOL 17 GM/PKT PO SCH (01:30)
[2019-11-02] MEDS ORDERED: BISACODYL 10 MG SUPP RC SCH (01:30)
[2019-11-02 04:00] VITALS: BP 166/71
--- NOTE | 2019-11-02 04:30 | NUR ---
PT STILL AWAKE, TALKING WITH FAMILY MEMBERS. ADMINISTERED SCHEDULED IV ABX ORDERED. PT WAS CHANGED AND REPOSITIONED. VS CHECKED AND CHARTED. PT HAS PLEASANT AND COOPERATIVE DEMEANOR. WILL CONTINUE TO MONITOR PT.
[2019-11-02] MEDS: PIPERACILLIN/TAZOBACTAM 2.25 GM in DEXTROSE 5% 50 ML IV SCH ×2 (04:55→12:50)
--- NOTE | 2019-11-02 05:30 | NUR ---
ADMINISTERED SCHEDULED IV ABX ORDERED. PT REFUSING TO BE TOUCHED. PT'S DAUGHTER TRIED TO CALM HIM DOWN. MADE SMALL TALKS WITH PT, PT SEEMED TO CALMED DOWN AND BECAME PLEASANT. MADE PT COMFORTABLE, WILL CONTINUE TO MONITOR PT.
--- NOTE | 2019-11-02 06:45 | NUR ---
PT AWAKE WITH NO SIGNS OF DISTRESS. PT'S FAMILY MEMBERS AT BEDSIDE. WILL ENDORSE TO AM SHIFT RN FOR PT'S CONTINUITY OF CARE.
--- NOTE | 2019-11-02 07:06 | NUR ---
RECEIVE BEDSIDE REPORT FROM NIGHT NURSE, PT IS STABLE, ON 2L NC, RESPIRATIONS ARE EVEN AND UNLABORED, AA0X1, IV SITE INTACT, LAC 220G, RUNNING NS AT 80 ML/H, ALMANZA CATHETER DRAINING YELLOW URINE, INTRODUCE SELF, WHITE BOARD UPDATED, SAFETY MEASURES IN PLACE, FAMILY AT BEDSIDE, CALL LIGHT WITHIN REACH.
[2019-11-02] MEDS: BLOOD GLUCOSE MONITORING 1 DEV DEV FS SCH ×3 (07:56→17:16)
[2019-11-02 08:00] VITALS: BP 150/68
[2019-11-02] MEDS ORDERED: DOCUSATE SODIUM 100 MG GELCAP PO SCH (09:00)
[2019-11-02] MEDS: LACTOBACILLUS RHAMNOSUS GG 1 EACH CAP PO SCH (09:35)
[2019-11-02] MEDS: SENNA 8.6 MG TAB PO SCH (09:35)
[2019-11-02] MEDS: OXYBUTYNIN 5 MG TAB PO SCH (09:35)
--- NOTE | 2019-11-02 09:45 | NUR ---
GAVE PT ORDERED MEDICATION, EDUCATION GIVEN, PT TOLERATED WELL WITH APPLESAUCE. HELD HEPARIN DR WILLARD SAID IT WAS OKAY TO HOLD SINCE PT HAS NOT ALLOWED BLOOD WORK TO CHECK PLATELET COUNT, PT IS STABLE, FAMILY AT BEDSIDE.
--- NOTE | 2019-11-02 11:05 | NUR ---
PT SIDE LYING HE IS GETTING CHANGED BY , PT IS STABLE, NO SIGNS OF DISTRESS NOTED, CALL LIGHT WITHIN REACH AND FAMILY AT BEDSIDE.
[2019-11-02 12:00] VITALS: BP 126/69
--- NOTE | 2019-11-02 12:02 | NUR ---
PT REFUSED ALL VITAL SIGNS EXCEPT BLOOD PRESSURE, PT REFUSED BLOOD GLUCOSE CHECK.
[2019-11-02] MEDS: NACL 0.9% 1,000 ML IV SCH (12:49)
--- NOTE | 2019-11-02 13:00 | NUR ---
PT RESTING IN BED, NO SIGNS OF DISTRESS NOTED, PT IS STABLE, CALL LIGHT WITHIN REACH.
--- NOTE | 2019-11-02 15:00 | NUR ---
PT RESTING IN BED, NO SIGNS OF DISTRESS NOTED, FAMILY AT BEDSIDE, CALL LIGHT WITHIN REACH.
[2019-11-02 15:11] VITALS: BP 150/68
[2019-11-02] MEDS ORDERED: LISI10TA11 PO (15:51)
[2019-11-02] MEDS ORDERED: PIPE50SO5 IV (15:53)
[2019-11-02 16:00] VITALS: BP 143/66
--- NOTE | 2019-11-02 16:00 | NUR ---
CALLED [facility] AND GAVE REPORT TO NAYELY, PT IS DUE TO BE TRANSPORT AT 1900. NOTIFIED FAMILY AT BEDSIDE AND CALLED DAUGHTER AMMY TO INFORM THEM THE PT WOULD BE TRANSFERRING TO [facility].
--- NOTE | 2019-11-02 18:17 | NUR ---
PT IN BED EATING, FEEDING PT, PT IS STABLE NO SIGNS OF DISTRESS NOTED, CALL LIGHT WITHIN REACH.
--- NOTE | 2019-11-02 19:24 | NUR ---
GAVE REPORT TO NIGHT NURSE FOR CONTINUITY OF CARE, PT IS STABLE
--- NOTE | 2019-11-02 19:30 | NUR ---
RECEIVED FROM AM RN IN BED AWAKE AND ALERT. FAMILY MEMBERS IN HERE AND WAITING FOR TRANSPORT FOR TRANSFER TO ANOTHER FACILITY. [facility] FOR TRANSFER DONE BY JULIÁN RN . REPORT TO FACILITY /SNF GIVEN BY JULIÁN RN TO [facility]ELOP[facility] EXECUTIVE AT SNF. PT. QUIET AND AWAKE. FAMILY MEMBERS NO COMPLAINTS.
--- NOTE | 2019-11-02 20:00 | NUR ---
TRANSPORT INHERE TO [facility] PT. FOR TRANSFER. [facility]KS WITH THEM. DAUGHTER IN HERE TO FOLLOW PT. FOR TRANSFER. NO BELONGINGS LEFT BEHIND. TRANSFER PAPER WORKS TO SNF WITH PARAMEDICS. FAMILY MEMBERS NO COMPLAINTS DONE. ARM BAND DISPOSED OF PROPERLY. ENCOURAGED FAMILY MEMBERS IF WITH QUESTIONS TO CALL ME . "OK"
== END 2019-11-02 20:30 | DRG 871 ==
LOC: MED 22:38 → MTU 10-29 05:13
PROVIDERS: ADMIT General Practice; ATTEND General Practice
DX: A41.9 Sepsis, unspecified organism (principal); G82.50 Quadriplegia, unspecified; N17.0 Acute kidney failure with tubular necrosis; G93.41 Metabolic encephalopathy; N39.0 Urinary tract infection, site not specified; E44.0 Moderate protein-calorie malnutrition; G82.20 Paraplegia, unspecified; R33.9 Retention of urine, unspecified; E11.9 Type 2 diabetes mellitus without complications; G47.33 Obstructive sleep apnea (adult) (pediatric); D63.8 Anemia in other chronic diseases classified elsewhere; E78.5 Hyperlipidemia, unspecified; R07.9 Chest pain, unspecified; I45.10 Unspecified right bundle-branch block; R74.0 Nonspecific elevation of levels of transaminase and lactic acid dehydrogenase [LDH]; L89.152 Pressure ulcer of sacral region, stage 2; Z68.24 Body mass index [BMI] 24.0-24.9, adult; Z88.8 Allergy status to other drugs, medicaments and biological substances; Z79.4 Long term (current) use of insulin; Z79.899 Other long term (current) drug therapy
CPT/HCPCS: 36415; 70450; 71045; 76700; 80048; 80053; 81001; 82150; 82948; 83036; 83605; 83690; 83735; 83880; 84100; 84134; 84443; 84484; 85025; 85610; 85730; 87040; 87081; 87086; 93005; 94660; 96365; 96368; 99285; J1200; J1644; J1815; J1956; J2060; J2543; J3486; J7030; J7060; Q0092

== ENCOUNTER 2019-11-05 08:38 | Inpatient (IN) | payer OTHER ==
[~2019-11-05] VITALS: Ht 170.2 cm; Wt 66.2 kg
[~2019-11-05 08:38] MED LIST: BACL20TA4 PO; DIT5 PO; GABA300C PO; LISI10TA11 PO; METF500T2 PO; PIPE50SO5 IV; PRAV20TA2 PO; SENN-90 PO
--- NOTE | 2019-11-05 08:39 | NUR ---
PATIENT BIBA TO BED 4 AT THIS TIME.
[2019-11-05 08:51] VITALS: BP 135/72
--- NOTE | 2019-11-05 08:51 | NUR ---
69 Y/O M HETALEtienne FROM [facility]. PER EMS C/C ALTERED; PT RESPONSIVE TO PAINFUL STIMULI; PT NON-VERBAL BUT MOANS WHEN SPOKEN TO. ON FIELD BS 131; IN ER 135. PER EMS NSR, VSS STABLE. HX HTN,DM,DEMENTIA. ALLERGIES TO ERYTHROMYCIN. RX SEE LIST. PER EMS PT STARTED ON ZOSYN AND FACILTY BELIEVES THAT MIGHT BE THE CAUSE OF HIS AMS. PUPILS PERRLA. VSS STABLE IN ER. LUNG SOUNDS CLEAR. SIDE RAIL X2.
--- NOTE | 2019-11-05 09:18 | NUR ---
ERMD AT BEDSIDE
--- NOTE | 2019-11-05 09:22 | NUR ---
CALLED RAD DEPARTEMENT S/W WILL TO ACTIVATED CODE BRAIN PER DR. CRANDALL.
--- NOTE | 2019-11-05 09:41 | NUR ---
PT BACK IN ROOM FROM CT SCAN
--- NOTE | 2019-11-05 09:42 | NUR ---
EMT FOR EKG AT BEDSIDE
--- NOTE | 2019-11-05 09:45 | NUR ---
RT AT BEDSIDE
--- NOTE | 2019-11-05 09:46 | NUR ---
PT SPO2 AT RA <90% ; ABG IN PROGRESS
--- NOTE | 2019-11-05 09:46 | NUR ---
LAB AT BEDSIDE
--- NOTE | 2019-11-05 10:03 | NUR ---
RT AT BEDSIDE; BIPAP PLACEMENT
[2019-11-05] MEDS ORDERED: LORazepam 2 MG/ML VIAL ONE (10:08)
[2019-11-05 10:09] LABS: BASOPHILS # (AUTO) 0.1 K/uL (0.00-0.22); BASOPHILS % (AUTO) 0.5 % (0.0-2.0); EOSINOPHILS # (AUTO) 0.9 K/uL (0-0.4); EOSINOPHILS % (AUTO) 7.5 % (0.0-4.0); HEMATOCRIT 37.1 % (36-52); HEMOGLOBIN 11.5 g/dL (12.0-18.0); LYMPHOCYTES # (AUTO) 1.9 K/uL (2.0-11.5); LYMPHOCYTES % (AUTO) 16.1 % (20.5-51.1); MEAN CORPUSCULAR HEMOGLOBIN 22 pg (27-31); MEAN CORPUSCULAR HGB CONC 31 g/dL (33-37); MEAN CORPUSCULAR VOLUME 70.5 fL (80-94); MONOCYTES # (AUTO) 0.8 K/uL (0.8-1.0); MONOCYTES % (AUTO) 6.7 % (1.7-9.3); NEUTROPHILS # (AUTO) 8.3 K/uL (1.8-7.7); NEUTROPHILS % (AUTO) 69.2 % (42.2-75.2); PLATELET COUNT (AUTO) 266 K/uL (140-450); RED BLOOD CELL COUNT(AUTO) 5.26 MIL/uL (4.20-6.10); RED CELL DISTRIBUTION WIDTH 16.8 % (11.6-13.7); WHITE BLOOD COUNT (AUTO) 11.9 K/uL (4.8-10.8)
[2019-11-05 10:10] VITALS: BP 161/108
[2019-11-05] MEDS ORDERED: LORazepam 2 MG/ML VIAL IVP ONE ×2 (10:10→10:15)
--- NOTE | 2019-11-05 10:10 | NUR ---
PT PLACED ON BIPAP SETTINGS 12/6 RR 12 FIO2 30% ALARMS ON AND AUDIBLE AND AMBU BAG AT SIDE OF BIPAP B\S ARE DIMINISHED, ON BIPAP DUE TO HIGH CO2 FROM ABG PT HAS LARGE FACE MASK ON
--- NOTE | 2019-11-05 10:12 | NUR ---
PT RESTLESS DURING BIPAP PLACEMENT , TRYING TO TAKE IT OFF, PLACED ON RESTRAINTS PER MD ORDERS
--- NOTE | 2019-11-05 10:15 | NUR ---
1MG ATIVAN GIVEN PER MD ORDER; 1MG ATIVAN WASTED AT BEDSIDE.
[2019-11-05 10:39] LABS: PROTHROMBIN TIME 10.4 secs (10.8-13.4)
[2019-11-05 10:43] LABS: ANION GAP 6.2 (8-16); CARBON DIOXIDE 30.4 mmol/L (21-32); CREATININE 1.2 mg/dL (0.7-1.3); POTASSIUM 3.6 mmol/L (3.5-5.1); TOTAL BILIRUBIN 0.2 mg/dL (0.0-1.0)
[2019-11-05 10:46] LABS: BILIRUBIN,URINE NEGATIVE (NEGATIVE); BLOOD, URINE 2+ (NEGATIVE); COLOR,URINE YELLOW (YELLOW); LEUKOCYTE ESTERASE ,URINE 3+ (NEGATIVE); NITRITE, URINE NEGATIVE (NEGATIVE); UGLUCOSE NEGATIVE (NEGATIVE)
[2019-11-05 10:56] LABS: APPEARANCE,URINE SLIGHTLY HAZY (CLEAR)
[2019-11-05 10:58] LABS: RBC,URINE 11-20 (MOD) /HPF (0-5); WBC,URINE 20-60 /HPF (0-5); YEAST,URINE Few /HPF (None Seen)
--- NOTE | 2019-11-05 11:02 | NUR ---
ERMD AT BEDSIDE
[2019-11-05] MEDS ORDERED: cefTRIAXone 1,000 MG VIAL ONE (11:07)
[2019-11-05] MEDS ORDERED: HYDROcodone/APAP 7.5/325 MG 1 TAB PO PRN (11:40)
[2019-11-05] MEDS ORDERED: ACETAMINOPHEN 325 MG TAB PO PRN (11:40)
[2019-11-05] MEDS ORDERED: NACL 0.9% 1,000 ML IV SCH (11:40)
[2019-11-05] MEDS ORDERED: ONDANSETRON 4 MG/2 ML VIAL IVP PRN (11:40)
[2019-11-05 13:05] VITALS: BP 112/60
[2019-11-05 13:15] LABS: PHOSPHORUS 3.9 mg/dL (2.5-4.9)
[2019-11-05 13:16] LABS: THYROID STIMULATING HORMONE 2.1 uIU/mL (0.34-3.74)
--- NOTE | 2019-11-05 14:07 | NUR ---
PT LAYING IN BED SEMIFOWLER, FAMILY AT BEDSIDE. SPO2 98% ON BIPAP 30% FIO2, RR EVEN AND UNLABORED. VSS. PT MEETS CRITERIA FOR REMOVING SOFT WRIST RESTRAINTS AT THIS TIME, RESTRAINTS REMOVED, +CIRCULATION, SKIN NORMAL COLOR WARM, CAP REFILL<3S. ALL NEEDS MET.
--- NOTE | 2019-11-05 14:33 | NUR ---
PT RESTING IN BED, VSS STABLE, SIDE RAIL X2
[2019-11-05] MEDS ORDERED: ALBUTEROL SULFATE/IPRATROPIU 3 ML SOL IH PRN (14:35)
[2019-11-05] MEDS ORDERED: DEXTROSE 50% 50 ML SYR IVP PRN (14:35)
--- NOTE | 2019-11-05 15:29 | NUR ---
Patient will be admitted to care of DR ARNOLD. Admited to TELEMETRY. Will go to [id number]. Belongings list completed. Report to BILLY KEYS. RN AWARE OF PT SKIN AT BEDSIDE.
[2019-11-05 15:30] VITALS: BP 114/68
--- NOTE | 2019-11-05 15:30 | NUR ---
RECEIVED REPORT FROM EMERGENCY ROOM NURSE FOR CONTINUITY OF CARE. PT IN STABLE CONDITION. RESPIRATIONS EVEN AND UNLABORED, BIPAP. IV IN TACT AND PATENT. SAFETY MEASURES IN PLACE. BED IN LOW POSITION. BED ALARM ON. CALL LIGHT AT BEDSIDE. WILL CONTINUE TO MONITOR.
[2019-11-05] MEDS ORDERED: FLUCONAZOLE 200 MG/NS PREMIX 100 ML IV SCH (17:20)
--- NOTE | 2019-11-05 17:25 | NUR ---
PT OPENING EYES INTERMITTENTLY AND REACHING OUT TO AT BEDSIDE. WILL CONTINUE TO MONITOR. BED IN LOW POSITION. BED ALARM ON. CALL LIGHT AT BEDSIDE.
[2019-11-05] MEDS: BLOOD GLUCOSE MONITORING 1 DEV DEV FS SCH ×2 (17:26→21:00)
[2019-11-05] MEDS: DEXT 5% / NACL 0.45% 1,000 ML IV SCH (18:23)
--- NOTE | 2019-11-05 19:30 | NUR ---
GAVE REPORT TO WOODWORK TEACHER NURSE FOR CONTINUITY OF CARE. PT IN STABLE CONDITION.
[2019-11-05] MEDS: ALBUTEROL SULFATE/IPRATROPIU 3 ML SOL IH SCH (19:52)
--- NOTE | 2019-11-05 19:52 | NUR ---
RECEIVED PT ON BiPAP SETTINGS ORDERED WITH SP02 OF 100%. FIO2 TITRATED FROM 30% TO 25% WITH SP02 OF 99%. A CLEAR DIMINISHED BREATH SOUNDS ON THE UPPER LOBES. BiPAP MACHINE PLUGGED INTO RED OUTLET, ALARMS ARE SET AND AUDIBLE, AND BVM AT BEDSIDE. PT IS NO RESPIRATORY DISTRESS NOTED AT THIS TIME. HHN TX GIVEN ORDERED WITH NO ADVERSE REACTION. FAMILY AT BEDSIDE. WILL CONTINUE TO MONITOR PT
--- NOTE | 2019-11-05 20:00 | NUR ---
RECEIVED PATIENT REPORT. PATIENT ASLEEP IN BED, ON BIPAP. PT IS AROUSABLE BUT LETHARGIC. ALMANZA CATH IN PLACE, DRAINING CLEAR YELLOW URINE. PT ON TELE MONITORING. DAUGHTER AND AT BEDSIDE. BED LOWERED WITH CALL LIGHT WITHIN REACH. WILL CONTINUE TO MONITOR
[2019-11-05 20:21] VITALS: BP 161/95
[2019-11-05] MEDS: OXYBUTYNIN 5 MG TAB PO SCH (21:00)
[2019-11-05] MEDS: DOCUSATE SODIUM 100 MG GELCAP PO SCH (21:00)
[2019-11-05] MEDS ORDERED: VANCOMYCIN PER PHARMACY MC PRN (22:30)
[2019-11-05] MEDS ORDERED: CEFEPIME 1,000 MG VIAL ONE (23:23)
[2019-11-05] MEDS: CEFEPIME 1,000 MG in DEXTROSE 5% 50 ML IV SCH (23:35)
[2019-11-06] VITALS: BP 155/89
[2019-11-06] MEDS ORDERED: VANCOMYCIN 1GM/DEXT 5% PREMIX 200 ML IV SCH (00:30)
[2019-11-06] MEDS ORDERED: VANCOMYCIN 1,000 MG VIAL ONE (01:06)
[2019-11-06 05:30] VITALS: BP 165/66
--- NOTE | 2019-11-06 05:30 | NUR ---
ORAL CARE GIVEN. PATIENT AWAKE AND ALERT
--- NOTE | 2019-11-06 05:40 | NUR ---
PT WAS TAKEN OFF FROM BiPAP AT THIS TIME AFTER ABG WAS DRAWN AND PLACED ON 2L NC WITH SP02 OF 98%. PT IS WAKE AND ALERT. FAMILY MEMBER AT BEDSIDE. RN WAS PRESENT. WILL CONTINUE TO MONITOR PT
[2019-11-06] MEDS: DEXT 5% / NACL 0.45% 1,000 ML IV SCH ×2 (05:45→18:15)
[2019-11-06 06:11] LABS: BASOPHILS % (AUTO) 0.1 % (0.0-2.0); EOSINOPHILS # (AUTO) 0.9 K/uL (0-0.4); EOSINOPHILS % (AUTO) 6.8 % (0.0-4.0); HEMATOCRIT 35.5 % (36-52); HEMOGLOBIN 10.9 g/dL (12.0-18.0); LYMPHOCYTES # (AUTO) 1.7 K/uL (2.0-11.5); LYMPHOCYTES % (AUTO) 12.4 % (20.5-51.1); MEAN CORPUSCULAR HEMOGLOBIN 22 pg (27-31); MEAN CORPUSCULAR HGB CONC 31 g/dL (33-37); MONOCYTES # (AUTO) 0.8 K/uL (0.8-1.0); MONOCYTES % (AUTO) 5.6 % (1.7-9.3); NEUTROPHILS # (AUTO) 10.1 K/uL (1.8-7.7); NEUTROPHILS % (AUTO) 75.1 % (42.2-75.2); PLATELET COUNT (AUTO) 239 K/uL (140-450); RED CELL DISTRIBUTION WIDTH 16.9 % (11.6-13.7); WHITE BLOOD COUNT (AUTO) 13.5 K/uL (4.8-10.8)
[2019-11-06] MEDS ORDERED: hydrALAZINE 20 MG/ML VIAL IVP PRN (06:30)
--- NOTE | 2019-11-06 06:30 | NUR ---
NOTIFIED DR BOUDREAUX ABOUT PATIENT'S BP TRENDING UP. PT NOT IN ANY S/S OF DISTRESS. ORDERS RECEIVED
[2019-11-06] MEDS: BLOOD GLUCOSE MONITORING 1 DEV DEV FS SCH ×4 (06:34→20:23)
--- NOTE | 2019-11-06 07:25 | NUR ---
PT REPORT GIVEN AT BEDSIDE. PT ENDORSED IN STABLE CONDITION
[2019-11-06 08:00] VITALS: BP 159/79
[2019-11-06] MEDS: metFORMIN 500 MG TAB PO SCH (08:00)
[2019-11-06 08:14] LABS: MAGNESIUM 1.9 mg/dL (1.8-2.4); PHOSPHORUS 2.1 mg/dL (2.5-4.9)
[2019-11-06 08:15] LABS: CHOL/HDL RATIO 5.5 (1-4.5)
--- NOTE | 2019-11-06 08:26 | NUR ---
RECEIVED PATIENT REPORT FROM HARDWOOD FLOOR INSTALLATION HELPER FOR CONTINUITY OF CARE. PATIENT AWAKE IN BED, ON 2L O2 VIA NC. RESP EVEN AND UNLABORED. PT IS SHOWING SIGNS OF CONFUSION. DAUGHTER AT BEDSIDE. ALMANZA CATH IN PLACE, DRAINING CLEAR YELLOW URINE. PT ON TELE MONITORING. BED LOWERED WITH CALL LIGHT WITHIN REACH. DISCUSSED POC WITH PT DAUGHTER AND SHE VERBALIZED UNDERSTANDING. SAFETY MEASURES IN PLACE, BED IN LOW POSITION, CALL LIGHT WITHIN REACH. WILL MONITOR PT FREQUENTLY.
--- NOTE | 2019-11-06 08:28 | NUR ---
PATIENT HAS BEEN SCREENED AND CATEGORIZED HIGH NUTRITION RISK. PATIENT WILL BE SEEN WITHIN 1-2 DAYS OF ADMISSION. 11/06/[address]
[2019-11-06] MEDS: OXYBUTYNIN 5 MG TAB PO SCH ×2 (09:00→20:10)
[2019-11-06] MEDS: LISINOPRIL 10 MG TAB PO SCH (09:00)
[2019-11-06] MEDS: SENNA 8.6 MG TAB PO SCH (09:00)
[2019-11-06] MEDS: ATORVASTATIN 20 MG TAB PO SCH (09:00)
[2019-11-06] MEDS: DOCUSATE SODIUM 100 MG GELCAP PO SCH ×2 (09:00→20:10)
[2019-11-06] MEDS ORDERED: CEFEPIME 1,000 MG in DEXTROSE 5% 50 ML IV SCH (09:00)
[2019-11-06] MEDS: FAMOTIDINE 20 MG TAB PO SCH (09:00)
[2019-11-06 09:10] LABS: ANION GAP 18.5 (8-16); CARBON DIOXIDE 23.2 mmol/L (21-32); CREATININE 1.2 mg/dL (0.7-1.3); POTASSIUM 3.7 mmol/L (3.5-5.1)
[2019-11-06] MEDS: ALBUTEROL SULFATE/IPRATROPIU 3 ML SOL IH SCH ×3 (09:50→19:37)
--- NOTE | 2019-11-06 09:57 | NUR ---
PT RESTING IN BED. ALL NEEDS MET. DAUGHTER AT BEDSIDE.
--- NOTE | 2019-11-06 10:16 | NUR ---
LABORATORY COURIER assessment/discharge plan High Risk DC Screen Yes Name: Ana Morley Home Relationship: daughter Pre-Admission Living Arrangements: SNF Prior ADL Needs Assistance Current Name/Tel: gregorio lift, hospital bed, electric wheelchair Healthcare Decision Maker: Patient Advance Directive No Tentative Discharge Plan Summary: Patient is a 69 year old male admitted for UTI, encephalophathy, and respiratory failure. Patient was admitted on 10/29/19 at [facility] and discharged to [facility] on 11/02/19 from [facility]. Patient lives at home with his Keya Morley. Patient becomes confused at times. He has not been diagnosed with dementia. Patient's pcp is at [facility] ([place], [place]). He goes to [facility] every 4 months. He does not have an Advance Directive. On previous hospital admission Keya told me she will not be able to take patient home upon discharge if patient remains confused. Keya assist patient with ADLs at home. Patient's daughter Ana is an QUALITY ASSURANCE PRACTICE MANAGER and visits patient frequently at home and also assist patient with ADLs. I met with patient and patient's other daughter Alvina Morley at bedside. Alvina told me patient is speaking Tagalog and is currently confused. Patient was transferred to [facility] from [facility] and Alvina thinks her mother Keay and her sister Ana would like patient to be transferred to a snf closer to their home in [place], [place] (if patient needs snf placement once again). She told me she will tell Keya or Ana to contact me regarding snf placement. I provided Alvina with my contact information. Cushion Installer and/or Bench Molder will follow up as needed. Signature: MYKEL Ford Date: Nov 06, 2019 Addendum: 11/06/19 at 1657 by Christal Peña SS Per Flex from [facility] , patient is not on a 7 day bed hold but they will accept him upon discharge. Per patient's daughter Ana she would like to know if there is a facility that helps patients with spinal cord injuries, I told her I will ask , and Bench Molder Ethel swanson aware. Per Ana, she is unsure at this time if she would like to patient to return to [facility] and will speak with MD regarding discharge plan.
--- NOTE | 2019-11-06 11:32 | NUR ---
PT ASLEEP IN BED. AT BEDSIDE. WILL CONTINUE TO ROUND ON PT.
[2019-11-06 12:00] VITALS: BP 152/76
--- NOTE | 2019-11-06 12:29 | NUR ---
*S.T. Bedside swallow eval completed* See report for details. Pt presents w/ adequate oropharyngeal swallow function for baseline diet textures trialed. No overt s/s aspiration observed. Pt unable to self-feed. Recommend: 1) Advance to pureed diet; thin liquids. 2) P.O. meds whole, one at a time. 3) 1:1 feeder w/ aspiration precautions. Pt appears to be functioning at baseline level. No further swallow tx indicated at this time. [facility]. Endorsed to MASSIMO Guzman. Time [id number]
[2019-11-06] MEDS: CEFEPIME 1,000 MG in DEXTROSE 5% 50 ML IV SCH (12:38)
[2019-11-06] MEDS ORDERED: VANCOMYCIN 750 MG in DEXTROSE 5% 250 ML IV SCH (13:00)
--- NOTE | 2019-11-06 13:41 | NUR ---
PT RESTING IN BED TALKING TO SELF. AT BEDSIDE. ALL NEEDS MET. WILL CONTINUE TO ROUND ON PT.
--- NOTE | 2019-11-06 14:22 | NUR ---
11/06/19 RD INITIAL ASSESSMENT COMPLETED PLEASE REFER TO NUTRITION ASSESSMENT UNDER CARE ACTIVITY FOR ESTIMATED NUTRITIONAL NEEDS. 1. IF/WHEN MEDICALLY STABLE TO BEGIN PO INTAKE, RECOMMEND CCHO 60GM CARDIAC PUREE DIET 2. RECOMMEND YASMEEN BID FOR WOUND HEALING 3. RD TO FOLLOW-UP 3-5 DAYS, MODERATE RISK CINDY KUMAR RD
--- NOTE | 2019-11-06 15:54 | NUR ---
PT EATING JELLO. ASSISTING. ALL NEEDS MET. WILL CONTINUE TO ROUND ON PT.
[2019-11-06 16:00] VITALS: BP 148/72
--- NOTE | 2019-11-06 17:54 | NUR ---
PT EATING DINNER IN BED. ASSISTING AT BEDSIDE. ALL NEEDS MET. WILL CONTINUE TO ROUND ON PT.
--- NOTE | 2019-11-06 19:22 | NUR ---
ENDORSED PT TO ENGINEERING SCIENTIST FOR CONTINUITY OF CARE. PT IN STABLE CONDITION AT THIS TIME.
--- NOTE | 2019-11-06 19:23 | NUR ---
RECEIVED PT AWAKE ON BED, VERBALLY RESPONSIVE BUT CONFUSED, ABLE TO FOLLOW COMMANDS, AT BEDSIDE, VITAL SIGNS TAKEN, BP SLIGHTLY ELEVATED, ASYMPTOMATIC, NO SIGNS OF PAIN OR SOB NOTED, ON O2 AT 2L NC WITH 100% SAT, ALMANZA CATHETER IN PLACE WITH YELLOW URINE, IVF INFUSING WELL, CONTRACTED ARMANDO UPPER EXTREMITY, WILL REPOSITION Q2H AND OFFLOAD PRESSURE AREAS, FREQUENT ROUNDS WILL BE MADE, MAINTAINED ON NPO FOR CT OF ABD/PEL TONIGHT, CALL LIGHT WITHIN REACH.
[2019-11-06 20:00] VITALS: BP 146/76
--- NOTE | 2019-11-06 20:15 | NUR ---
BLOOD SUGAR CHECKED WITH 154 RESULT, COVERAGE GIVEN, DUE MEDS ADMINISTERED WITH A LITTLE BIT OF APPLE SAUCE, TOLERATED WELL, ALL NEEDS ATTENDED.
[2019-11-06] MEDS: INSULIN LISPRO SLIDING SCALE 100 UNITS/ML VIAL SUBQ PRN (20:21)
[2019-11-07] VITALS: BP 156/71
--- NOTE | 2019-11-07 00:20 | NUR ---
PHILIPPE FROM [facility] CALLED TO INQUIRE HOW TO TRANSPORT PT TO CT, MADE AWARE THAT PT IS BEDBOUND AND NEEDS TO GO VIA BED TO CT DEPT, MADE AWARE THAT PT IS READY TO GO ANYTIME, SHE WILL CALL BACK.
--- NOTE | 2019-11-07 02:50 | NUR ---
PT BACK FROM CT DEPT, PT AWAKE, VERBALLY RESPONSIVE, IVF RESUMED, DAUGHTER AT BEDSIDE FEEDING PT WITH JELLO, TOLERATING WELL, MONITORED CLOSELY.
--- NOTE | 2019-11-07 03:30 | NUR ---
pt placed on bipap at 12/6,12,25%. bipap plugged into red outlet. alarms audible and working. will cont to monitor
[2019-11-07] MEDS: DEXT 5% / NACL 0.45% 1,000 ML IV SCH ×2 (03:39→20:47)
[2019-11-07 04:00] VITALS: BP 163/73
--- NOTE | 2019-11-07 04:00 | NUR ---
PT AWAKE WITH BIPAP IN PLACE, TOLERATING WELL, VITAL SIGNS TAKEN, BP ELEVATED, ASYMPTOMATIC, NO SIGNS OF PAIN OR SOB, IVF INFUSING WELL, DAUGHTER AT BEDSIDE, MONITORED CLOSELY.
--- NOTE | 2019-11-07 05:20 | NUR ---
AM LABS DRAWN, BLOOD SUGAR CHECKED WITH 146 RESULT, NO COVERAGE NEEDED, PT TOLERATING BIPAP, NO RESP DISTRESS NOTED, MONITORED CLOSELY.
--- NOTE | 2019-11-07 05:30 | NUR ---
PT TAKEN OFF BIPAP AND PLACED ON 2LNC SAT 100%. NO DISTRESS NOTED. WILL CONT TO MONITOR
[2019-11-07 05:48] LABS: BASOPHILS # (AUTO) 0.1 K/uL (0.00-0.22); BASOPHILS % (AUTO) 0.7 % (0.0-2.0); EOSINOPHILS # (AUTO) 0.7 K/uL (0-0.4); EOSINOPHILS % (AUTO) 5.5 % (0.0-4.0); HEMATOCRIT 33.4 % (36-52); HEMOGLOBIN 10.3 g/dL (12.0-18.0); LYMPHOCYTES # (AUTO) 1.7 K/uL (2.0-11.5); LYMPHOCYTES % (AUTO) 12.9 % (20.5-51.1); MEAN CORPUSCULAR HEMOGLOBIN 22 pg (27-31); MEAN CORPUSCULAR HGB CONC 31 g/dL (33-37); MEAN CORPUSCULAR VOLUME 70.9 fL (80-94); MONOCYTES # (AUTO) 0.8 K/uL (0.8-1.0); MONOCYTES % (AUTO) 6.4 % (1.7-9.3); NEUTROPHILS # (AUTO) 9.9 K/uL (1.8-7.7); NEUTROPHILS % (AUTO) 74.5 % (42.2-75.2); PLATELET COUNT (AUTO) 243 K/uL (140-450); RED BLOOD CELL COUNT(AUTO) 4.71 MIL/uL (4.20-6.10); RED CELL DISTRIBUTION WIDTH 16.9 % (11.6-13.7); WHITE BLOOD COUNT (AUTO) 13.3 K/uL (4.8-10.8)
[2019-11-07 06:07] LABS: ANION GAP 11.4 (8-16); CARBON DIOXIDE 27.9 mmol/L (21-32); CREATININE 1.2 mg/dL (0.6-1.3); POTASSIUM 3.3 mmol/L (3.5-5.1)
[2019-11-07 06:08] LABS: MAGNESIUM 1.8 mg/dL (1.8-2.4); PHOSPHORUS 2.7 mg/dL (2.5-4.9)
[2019-11-07] MEDS ORDERED: VANCOMYCIN PER PHARMACY MC PRN (06:25)
[2019-11-07] MEDS ORDERED: BISACODYL 10 MG SUPP RC PRN (06:30)
[2019-11-07] MEDS: BLOOD GLUCOSE MONITORING 1 DEV DEV FS SCH ×4 (07:01→21:00)
--- NOTE | 2019-11-07 07:22 | NUR ---
PT AWAKE, NO SIGNS OF DISTRESS, REPORT GIVEN TO MASSIMO QUEVEDO FOR CONTINUITY OF CARE.
--- NOTE | 2019-11-07 07:25 | NUR ---
RECEIVED BEDSIDE SHIFT REPORT FROM DAIRY FARMWORKER NURSE FOR CONTINUATION OF CARE. PATIENT IS AAOX1/2, REMAINS CONFUSED. COMPLAINS OF CONSTIPATION X4/5 DAYS, DULCOLAX ORDERED PRN. FAMILY AT BEDSIDE, RECEIVING BREATHING TREATMENT AT THIS TIME. CALL LIGHT ON AND WITHIN REACH, BED IS IN LOW POSITION, EDUCATED ON THE CALL LIGHT, FAMILY MEMBER VERBALIZED UNDERSTANDING. WILL CONTINUE TO MONITOR.
[2019-11-07] MEDS: ALBUTEROL SULFATE/IPRATROPIU 3 ML SOL IH SCH ×3 (07:27→19:00)
[2019-11-07 08:00] VITALS: BP 155/67
[2019-11-07] MEDS ORDERED: CEFEPIME 1,000 MG in DEXTROSE 5% 50 ML IV SCH (09:00)
[2019-11-07] MEDS ORDERED: VANCOMYCIN 750 MG in DEXTROSE 5% 250 ML IV SCH (09:00)
--- NOTE | 2019-11-07 10:00 | NUR ---
ASSESSED SACRAL WOUND WITH BLADE TRADE ECONOMIST NURSE, SACRAL WOUND IS UNSTAGEABLE PRESSURE ULCER, BLADE ORDERED BETADINE CLEANSE WITH DRY DRESSING CHANGE. PATIENT HAS 2 HEALED PRESSURE ULCERS LOCATED WITHIN THE BUTTOCKS AREA. ALSO, PATIENT IS HAVING DIFFICULTY SWALLOWING BREAKFAST AND THERE IS DOUBT TO WHETHER HE CAN SWALLOW HIS PO MEDICATIONS, MD MADE AWARE.
--- NOTE | 2019-11-07 10:20 | NUR ---
WOUND CARE EVALUATION NOTE: REASON FOR EVALUATION: SACRAL COCCYX WOUND SKIN ASSESSMENT DONE WITH THIS 69 Y/O MALE PT ADMITTED FROM SNF TO [facility] WITH INITIAL DX OF AMS. PAST MEDICAL HX INCLUDES SPINAL CORD INJURY, IN COMPLETE PARAPLEGIA C6-C7, DM AND PT. ADMITTED WITH UN-STAGEABLE PRESSURE ULCERS. ALL ABOVE INFORMATION OBTAINED FROM ADMISSION H&P. AND PTS DAUGHTER LIZY, SHE IS AAX4. PT. SPEAKING IN TAGALOG, PER DAUGHTER HE TALKS WITH NO MEANING, AND HE DOES NOT UNDERSTAND. PT SKIN IS WARM AND DRY, MULTIPLE HEALED SCARS TO MID ABDOMINAL, BLE, HIPS AND ISCHIUM. BLE NO HAIR GROWTH, NO EDEMA TO BILATERAL LOWER LEGS. BILATERAL DORSAL PEDAL PULSES PRESENT AND NORMAL, CAPILLARY RE-FILLED, 2 SEC. F/C PATENT WITH MODERATE YELLOW URINE OBSERVED IN THE BAG. PLAN OF CARE DISCUSSED WITH PRIMARY RN AND DAUGHTER. DAUGHTER VERBALIZES UNDERSTANDING INTEGUMENTARY: -LEFT HIP HEALING SCAR 2X2CM -RIGHT ISCHIUM HEALING SCAR 3X3CM -COCCYX SKIN HEALED SCAR CLEAN AND INTACT SURROUNDING REDNESS, DENUDED SKIN EXTENDED TO SACRUM AND BUTTOCKS WITH UN-STAGEABLE PRESSURE ULCERS, SITE #1 RIGHT BUTTOCK 3X2CM DARK BROWN STABLE SCAB, AND SITE #2 LEFT BUTTOCK 2. APPLY OPTIFOAM TO SACRALCOCCYX QD AND PRN SOILING PREVENTION 5X3 CM DARK BROWN STABLE SCAB WITH SURROUNDING REDNESS INDICATED FURTHER DAMAGE -BILATERAL HEELS BLANCHABLE REDNESS RECOMMENDATIONS: -PAINT SACRAL SCABS WITH BETADINE MILTON. LET IT DRY BID AND PRN SOILING -APPLY OPTIFOAM TO LEFT HIP AND RIGHT ISCHIUM QD AND PRN SOILING PREVENTION -OFFLOAD BILATERAL HEELS BY PLACING PILLOWS UNDER CALVES UNLESS OTHERWISE CONTRAINDICATED -PRESSURE REDISTRIBUTION SURFACE THERAPY -TURN AND REPOSITION Q2H, OFFLOAD SACRALCOCCYX AND RIGHT ISCHIUM BY TURNING RIGHT AND LEFT -CONTINUE TO FOLLOW RD RECOMMENDATIONS ALL ABOVE RECOMMENDATIONS DISCUSSED WITH PRIMARY RN WILL FOLLOW UP PT Q7-10 DAYS. PLEASE CONTACT WOUND CARE NURSE FOR ANY QUESTION AND CHANGE OF WOUND CONDITION. Addendum: 01/31/20 at 1200 by Kamran Ibanez RN (Grace) CORRECTION: INTEGUMENTARY: -LEFT HIP HEALING SCAR 2X2CM -RIGHT ISCHIUM HEALING SCAR 3X3CM -COCCYX SKIN HEALED SCAR CLEAN AND INTACT SURROUNDING REDNESS, DENUDED SKIN EXTENDED TO SACRUM AND BUTTOCKS WITH UN-STAGEABLE PRESSURE ULCERS, SITE #1 RIGHT BUTTOCK 3X2CM DARK BROWN STABLE SCAB, AND SITE #2 LEFT BUTTOCK 2.5X3 CM DARK BROWN STABLE SCAB WITH SURROUNDING REDNESS INDICATED FURTHER DAMAGE -BILATERAL HEELS BLANCHABLE REDNESS RECOMMENDATIONS: -PAINT SACRAL SCABS WITH BETADINE MILTON. LET IT DRY AND APPLY OPTIFOAM TO SACRALCOCCYX QD AND PRN SOILING -APPLY OPTIFOAM TO LEFT HIP AND RIGHT ISCHIUM QD AND PRN SOILING PREVENTION -OFFLOAD BILATERAL HEELS BY PLACING PILLOWS UNDER CALVES UNLESS OTHERWISE CONTRAINDICATED -PRESSURE REDISTRIBUTION SURFACE THERAPY -TURN AND REPOSITION Q2H, OFFLOAD SACRALCOCCYX BY TURNING RIGHT AND LEFT -CONTINUE TO FOLLOW RD RECOMMENDATIONS ALL ABOVE RECOMMENDATIONS DISCUSSED WITH PRIMARY RN WILL FOLLOW UP PT Q7-10 DAYS. PLEASE CONTACT WOUND CARE NURSE FOR ANY QUESTION AND CHANGE OF WOUND CONDITION.
[2019-11-07] MEDS: ATORVASTATIN 20 MG TAB PO SCH (11:18)
[2019-11-07] MEDS: OXYBUTYNIN 5 MG TAB PO SCH ×2 (11:19→22:12)
[2019-11-07] MEDS: DOCUSATE SODIUM 100 MG GELCAP PO SCH ×2 (11:19→22:12)
[2019-11-07] MEDS: LISINOPRIL 10 MG TAB PO SCH (11:19)
[2019-11-07] MEDS: FAMOTIDINE 20 MG TAB PO SCH (11:19)
[2019-11-07] MEDS: SENNA 8.6 MG TAB PO SCH (11:19)
[2019-11-07] MEDS: metFORMIN 500 MG TAB PO SCH (11:19)
[2019-11-07] MEDS: FLUCONAZOLE 200 MG/NS PREMIX 100 ML IV SCH (11:46)
[2019-11-07 12:00] VITALS: BP 131/44
--- NOTE | 2019-11-07 12:00 | NUR ---
DISCHARGE PLANNIN69 Y/O MALE PATIENT FROM [facility], WHO CAME IN DUE TO ALTERED MENTAL STATUS X 4 DAYS. PAST MEDICAL HISTORY INCLUDE COMPLICATED UTI, VASCULAR DEMENTIA, ALANNA ON CKD, RIGHT BBB, ANEMIA OF CHRONIC DISEASE, SPINAL CORD INJURY AND DM. CURRENT LABS INCLUDE WBC 13.3, H/H 10.3/33.4, NA/K 137/3.3, BUN/CREA 10/1.2. ON VANCOMYCIN, CEFEPIME AND FLUCONAZOLE. MRSA NARES, BLOOD AND URINE CULTURES PENDING. PULMO AND ID CONSULTS IN PLACE. DC PLAN PENDING ON PATIENT'S RESPONSE TO TREATMENT. Addendum: 11/10/19 at 0903 by Ethel Leija CM CONTACTED DEONNA HOFFMAN AT [phone], HE STATED PATIENT'S DIAGNOSIS DID NOT QUALIFY FOR HOME O2. Addendum: 11/10/19 at 1108 by Ethel Leija CM MET WITH THE PATIENT'S SAMAN AT THE BEDSIDE TO DISCUSS DC PLAN AND TO PROVIDE IMM LETTER. SHE STATED TO CALL HER DAUGHTER DARIELA. CONTACTED DARIELA RAY AT [phone] TO DISCUSS DC PLAN AND IMM LETTER. I INFORMED HER THAT PATIENT DID NOT QUALIFY FOR HOME O2, HOWEVER DR WILL ORDER ABG ON ROOM AIR. Addendum: 11/10/19 at 1125 by Ethel Leija CM PER PATIENT'S DAUGHTER DARIELA, THEY ARE WILLING TO PAY OUT OF POCKET FOR O2 RENTAL. I INFORMED HER THAT I WILL REACH OUT TO [employer] TO GET A QUOTE. CONTACTED PRISCA OF [employer], HE STATED HE WILL CONTACT THEIR OFFICE TO GET A QUOTE. PER PRISCA OF [employer], RENTAL WILL COST $230/MO. HE ALSO PROVIDED ME WITH THE OFFICE GASTROENTEROLOGY TECHNICIAN [employer] NUMBER AT [phone] EXT [phone]. PATIENT'S DAUGHTER DARIELA MADE AWARE AND WILL CONTACT SUSU. Addendum: 11/10/19 at 1315 by Ethel Leija CM PER PATIENT'S DAUGHTER DARIELA, HER FATHER WAS WITH HEALTH SYSTEM [phone] PRIOR TO ADMISSION. CONTACTED [facility]ALTH [facility], ABLE TO SPEAK TO MELISSA. SHE CONFIRMED PATIENT WAS ON THEIR SERVICES AND WOULD LIKE TO CONTINUE IF THERE IS ANY HOME HEALTH NEEDS. SHE PROVIDED ME WITH FAX NUMBER [phone] TO SEND REFERRAL. REFERRAL SENT. Addendum: 11/10/19 at 1420 by Ethel Leija CM RECEIVED A CALL FROM MELISSA OF [facility], REQUESTING FOR DC SUMMARY. PAPERWORK REQUESTED FAXED TO [phone]. CHARISSE WILL FOLLOW UP. Addendum: 11/10/19 at 1600 by Ethel Leija CM RECEIVED A CALL FROM PRIMARY RN STATING THAT PATIENT WILL BE NEEDING TRANSPORTATION TO HOME. CONTACTED PATIENT'S DAUGHTER DARIELA, SHE STATED THEY ALWAYS TRANSPORT THE PATIENT WITH THE AMBULANCE BECAUSE PATIENT IS BEDBOUND. I INFORMED HER THAT [facility] HAVE MEDICAL NECESSITY FORM, IF PATIENT DOES NOT QUALIFY INSURANCE WILL NOT COVER. SHE STATED THEY ARE WILLING TO PAY FOR TRANSPORT IF IN CASE INSURANCE WILL NOT COVER IT. CONTACTED DEE OF [facility], SHE STATED MEDICARE WILL NOT COVER TRANSPORTATION EVEN IF THE PATIENT IS BEDBOUND AND DOES NOT HAVE MEDICAL NECESSITY. CONTACTED [facility], ABLE TO SPEAK TO CATALINA AND ASKED FOR A QUOTE. HE STATED IT WILL BE $100 CANDELARIA OR CHECK. PATIENT'S SAMAN MADE AWARE, SHE STATED THEY CAN PAY. PER CATALINA OF [facility], BRIDGE OPERATOR WILL BE AT 1930. PRIMARY RN AND DR. WILLARD MADE AWARE.
--- NOTE | 2019-11-07 12:00 | NUR ---
PATIENT IS RESTING IN BED, IS AT BEDSIDE ASSISTING WITH FEEDING, PATIENT TOOK MEDS PO WITH ASSISTANCE FROM . MEDICATIONS TOLERATED WELL. BED IS IN LOW POSITION, BLOOD SUGAR CHECK REQUIRED COVERAGE OF 2 UNITS OF INSULIN. TOLERATED INSULIN WELL. PATIENT REMAINS CONFUSED, MUMBLED SPEECH. WILL CONTINUE TO MONITOR.
[2019-11-07] MEDS: GAUZE TP SCH (13:02)
[2019-11-07] MEDS: INSULIN LISPRO SLIDING SCALE 100 UNITS/ML VIAL SUBQ PRN ×2 (13:03→22:16)
--- NOTE | 2019-11-07 14:30 | NUR ---
AT BEDSIDE ASSISTED PATIENT WITH EATING, PATIENT TOLERATED EATING WELL. PATIENT CONTINUES TO BE CONFUSED AND MUMBLING SPEECH. BED IS IN LOW POSITION CALL LIGHT ON AND WITHIN REACH, WILL CONTINUE TO MONITOR.
[2019-11-07 16:00] VITALS: BP 161/77
--- NOTE | 2019-11-07 17:00 | NUR ---
ROUNDS MADE, PATIENT IS BEGINNING TO BECOME AGITATED WHEN CHANGING LINEN, GOWN. BLOOD SUGAR IS 149, NO COVERAGE NEEDED, FAMILY AT BEDSIDE. CALL LIGHT ON AND WITHIN REACH, WILL CONTINUE TO MONITOR.
[2019-11-07] MEDS ORDERED: POTASSIUM CHLORIDE 10 MEQ TABER PO SCH (18:00)
--- NOTE | 2019-11-07 19:20 | NUR ---
BEDSIDE SHIFT REPORT GIVEN TO LAMINATION INSPECTOR NURSE FOR CONTINUATION OF CARE.
--- NOTE | 2019-11-07 19:30 | NUR ---
RECEIVED FROM AM RN IN BED IN A SITTING POSITION AWAKE AND ALERT. TALKING WELL WITH FAMILY MEMBERS PRESENT IN [facility]. NO COMPLAINTS OF ANY PAIN DONE AT THIS TIME. CALL LIGHT WITH IN REACH A ND CARE PLANS FOR THE NIGHT DISCUSSED WITH THEM. ENCOURAGED TO CALL FOR ANY HELP THEY MAY NEED. BED ALARM ON. AFEBRILE.
--- NOTE | 2019-11-07 22:40 | NUR ---
PT. AWAKE AND WATCHING TV AT THE SAME TIME TALKING TO DAUGHTER. NO COMPLAINTS OF ANY PAIN DONE. BEDBOUND. CALL LIGHT WITH IN REACH. ENCOURAGED TO CALL FOR ANY HELP THEY MAY NEED. AFEBRILE.
[2019-11-08] VITALS: BP 126/81
--- NOTE | 2019-11-08 | NUR ---
VITAL SIGNS TAKEN. STILL AWAKE AND WATCHING TV. ENCOURAGED TO SLEEP. DAUGHTER AT BEDSIDE WATCHING OVER PT.
--- NOTE | 2019-11-08 04:00 | NUR ---
PT. AWAKE AND TALKING STILL WITH THE DAUGHTER.ENCOURAGED TO SLEEP. NO COMPLAINTS. NEW IVF SITE TO LEFT WRIST #22 INSERTED RT AC LEFT ARM DISCONTINUED BY PT ACCIDENTALLY.
--- NOTE | 2019-11-08 07:02 | NUR ---
WILL ENDORSE TO AM RN FOR CONTINUITY OF CARE. DAUGHTERS INHERE TO WATCH OVER HIM. NO COMPLAINTS DONE.
--- NOTE | 2019-11-08 07:07 | NUR ---
RECEIVED PT FROM AUTO DISMANTLER NURSECEDRIC, PT IS AWAKE AND LYING ON THE BED WITH SIDE RAILS UP AND CALL LIGHT WITHIN REACH, PERIPHERAL LINE ON THE LEFT HAND G. 22 WITH IV D5 1/2 NS INFUSING AT 80ML/HR, DAUGHTER ON THE BEDSIDE, O2 2L NC WAS PLACED, SAFETY AND FALL PRECAUTION ENFORCED, PT IS CONFUSED, BED ALARM ON, QUADRIPLEGIC AND ALMANZA CATHETER IN PLACE, SACRAL AND LEFT HIP WOUNDS NOTED AND REINFORCED WITH OPTIFOAM DRESSINGS, WILL CONTINUE TO BE MONITORED.
[2019-11-08] MEDS: BLOOD GLUCOSE MONITORING 1 DEV DEV FS SCH ×4 (07:09→21:00)
[2019-11-08 07:18] LABS: BASOPHILS # (AUTO) 0.1 K/uL (0.00-0.22); BASOPHILS % (AUTO) 0.7 % (0.0-2.0); EOSINOPHILS # (AUTO) 0.7 K/uL (0-0.4); HEMATOCRIT 33.7 % (36-52); HEMOGLOBIN 10.3 g/dL (12.0-18.0); LYMPHOCYTES # (AUTO) 2.1 K/uL (2.0-11.5); LYMPHOCYTES % (AUTO) 18.3 % (20.5-51.1); MEAN CORPUSCULAR HEMOGLOBIN 22 pg (27-31); MEAN CORPUSCULAR HGB CONC 31 g/dL (33-37); MEAN CORPUSCULAR VOLUME 70.8 fL (80-94); MONOCYTES % (AUTO) 8.9 % (1.7-9.3); NEUTROPHILS # (AUTO) 7.5 K/uL (1.8-7.7); NEUTROPHILS % (AUTO) 66.1 % (42.2-75.2); PLATELET COUNT (AUTO) 237 K/uL (140-450); RED BLOOD CELL COUNT(AUTO) 4.76 MIL/uL (4.20-6.10); RED CELL DISTRIBUTION WIDTH 16.8 % (11.6-13.7); WHITE BLOOD COUNT (AUTO) 11.3 K/uL (4.8-10.8)
[2019-11-08] MEDS: ALBUTEROL SULFATE/IPRATROPIU 3 ML SOL IH SCH ×2 (07:39→13:00)
[2019-11-08 07:41] LABS: MAGNESIUM 1.8 mg/dL (1.8-2.4); PHOSPHORUS 2.3 mg/dL (2.5-4.9)
[2019-11-08 07:42] LABS: ANION GAP 13.2 (8-16); CARBON DIOXIDE 25.4 mmol/L (21-32); CREATININE 1.1 mg/dL (0.6-1.3); POTASSIUM 3.6 mmol/L (3.5-5.1)
[2019-11-08 08:00] VITALS: BP 148/78
[2019-11-08] MEDS: DOCUSATE SODIUM 100 MG GELCAP PO SCH ×2 (08:20→22:36)
--- NOTE | 2019-11-08 08:20 | NUR ---
PT WAS GIVEN THE SCHEDULED AM MEDICATIONS NOW, DAUGHTER ON THE BEDSIDE, WILL MONITOR PT.
[2019-11-08] MEDS: metFORMIN 500 MG TAB PO SCH (08:21)
[2019-11-08] MEDS: DEXT 5% / NACL 0.45% 1,000 ML IV SCH (08:21)
[2019-11-08] MEDS: FLUCONAZOLE 200 MG/NS PREMIX 100 ML IV SCH (08:22)
[2019-11-08] MEDS: OXYBUTYNIN 5 MG TAB PO SCH ×2 (08:23→22:36)
[2019-11-08] MEDS: ATORVASTATIN 20 MG TAB PO SCH (08:23)
[2019-11-08] MEDS: LISINOPRIL 10 MG TAB PO SCH (08:23)
[2019-11-08] MEDS: FAMOTIDINE 20 MG TAB PO SCH (08:24)
[2019-11-08] MEDS: SENNA 8.6 MG TAB PO SCH (08:24)
[2019-11-08] MEDS ORDERED: FLUCONAZOLE 200 MG/NS PREMIX 100 ML IV SCH (09:00)
--- NOTE | 2019-11-08 11:15 | NUR ---
PT WAS REPOSITIONED NOW AND WAS MADE COMFORTABLE, DAUGHTER ON THE BEDSIDE.
[2019-11-08] MEDS ORDERED: SODIUM PHOS / POTASSIUM PHOS 1 PKT PDR PO SCH (12:09)
--- NOTE | 2019-11-08 13:06 | NUR ---
PT WAS GIVEN NEUTRA-PHOS DILUTED IN WATER, TOLERATED IT, DAUGHTERS ON THE BEDSIDE, WILL MONITOR PT.
[2019-11-08] MEDS: GAUZE TP SCH (13:49)
--- NOTE | 2019-11-08 13:49 | NUR ---
PT'S WOUND ASSESSMENT WAS DONE TO PT NOW, CLEANED, PAT DRY AND BETADINE WAS APPLIED AND REINFORCED WITH OPTIFOAM DRESSINGS, PT WAS REPOSITIONED AND WILL BE MONITORED.
[2019-11-08 16:00] VITALS: BP 153/77
--- NOTE | 2019-11-08 17:22 | NUR ---
BLOOD GLUCOSE CHECK DONE AND RESULT IS 124 AND NO INSULIN COVERAGE NEEDED.
--- NOTE | 2019-11-08 19:20 | NUR ---
ENDORSED PT TO CARDIOVASCULAR TECHNICIAN NURSE RAMON FOR CONTINUITY OF CARE.
--- NOTE | 2019-11-08 19:20 | NUR ---
RECEIVED REPORT FORM HONEY KEYS DAYSHIFT NURSE AT BEDSIDE FOR CONTINUITY, PT IN STABLE CONDITION.
--- NOTE | 2019-11-08 20:00 | NUR ---
PT IN BED AOX2-3. HE HAS A N/C RUNNING AT 2LITERS PT ALSO HAS ALMANZA CATHETER DRAINING YELLOW URINE. PT WAS TURNED AND REPOSITIONED IN BED. NO C/O VOICED AT THIS TIME V/S FOLLOWS: T 99.0 P 80 R 18 B/P 140/70 02 100% ON 2 LITERS VIA N/C. PT GIVEN ICE PACKS FOR COOLING MEASURES FLUIDS RUNNING D5 1/2 AT 80MLS HR IV SITE FLUSHED PATENT. ALL FALLS PRECAUTIONS IN PLACE.
--- NOTE | 2019-11-08 21:00 | NUR ---
PT IN BED N/C IN PLACE AT 2 LITERS SUPPLEMENTAL 02. PT ALSO HAS ALMANZA CATHETER WHICH IS DRAINING YELLOW URINE. PT RUNNING D51/2 AT 80MLS/HR ORDERED. IV SITE INTACT AND ASYMPTOMATIC. PT FINGERSTICK IS 122 NO HUMALOG COVERAGE NEEDED. PT ALSO GIVEN COLACE, DITROPAN AND HEPARIN ORDERED. MEDICATION EDUCATION PROVIDED AT BEDSIDE. PT EDUCATION NEEDED REINFORCEMENT. FAMILY ALSO EDUCATED AT BEDSIDE. ALL FALLS PRECAUTIONS IN PLACE.
--- NOTE | 2019-11-08 22:30 | NUR ---
PT IN BED NO S/S OF PAIN OR DISTRESS NOTED. PT REPOSITIONED IN BED. IV SITE INTACT AND RUNNING D5 1/2 AT 80MLS/HR. ORDERED. NO S/S OF PAIN OR DISTRESS NOTED.
--- NOTE | 2019-11-08 23:00 | NUR ---
LEONIDES AT BEDSIDE FOR CONSULT
[2019-11-09] VITALS: BP 129/65
--- NOTE | 2019-11-09 00:35 | NUR ---
PT REPOSITIONED IN BED IV FLUIDS RUNNING ORDERED. ALMANZA CATHETER INTACT AND ASYMPTOMATIC. ALL FALLS PRECAUTIONS IN PLACE.
--- NOTE | 2019-11-09 04:00 | NUR ---
PT TURNED AND REPOSITIONED.
--- NOTE | 2019-11-09 06:00 | NUR ---
FINGERSTICK IS 114 NO HUMALOG COVERAGE NEEDED. PT TURNED, CHANGED AND REPOSITIONED IN BED.
[2019-11-09] MEDS: BLOOD GLUCOSE MONITORING 1 DEV DEV FS SCH ×4 (06:21→21:21)
[2019-11-09] MEDS: DEXT 5% / NACL 0.45% 1,000 ML IV SCH ×4 (06:26→22:58)
[2019-11-09 07:00] LABS: BASOPHILS # (AUTO) 0.1 K/uL (0.00-0.22); BASOPHILS % (AUTO) 0.7 % (0.0-2.0); EOSINOPHILS # (AUTO) 0.8 K/uL (0-0.4); EOSINOPHILS % (AUTO) 9.6 % (0.0-4.0); HEMOGLOBIN 10.2 g/dL (12.0-18.0); LYMPHOCYTES # (AUTO) 2.3 K/uL (2.0-11.5); LYMPHOCYTES % (AUTO) 26.4 % (20.5-51.1); MEAN CORPUSCULAR HEMOGLOBIN 22 pg (27-31); MEAN CORPUSCULAR HGB CONC 31 g/dL (33-37); MEAN CORPUSCULAR VOLUME 70.8 fL (80-94); MONOCYTES # (AUTO) 0.9 K/uL (0.8-1.0); NEUTROPHILS # (AUTO) 4.6 K/uL (1.8-7.7); NEUTROPHILS % (AUTO) 53.3 % (42.2-75.2); PLATELET COUNT (AUTO) 229 K/uL (140-450); RED BLOOD CELL COUNT(AUTO) 4.67 MIL/uL (4.20-6.10); RED CELL DISTRIBUTION WIDTH 17.2 % (11.6-13.7); WHITE BLOOD COUNT (AUTO) 8.7 K/uL (4.8-10.8)
[2019-11-09] MEDS: ALBUTEROL SULFATE/IPRATROPIU 3 ML SOL IH SCH ×3 (07:00→19:02)
[2019-11-09 07:10] LABS: ANION GAP 10.8 (8-16); CARBON DIOXIDE 26.5 mmol/L (21-32); CREATININE 1.1 mg/dL (0.6-1.3); POTASSIUM 3.3 mmol/L (3.5-5.1)
--- NOTE | 2019-11-09 07:25 | NUR ---
RECEIVED PT FROM MARKETING/SALES PERSON NURSE, RAMON, PT IS AWAKE AND SUPINE, IV LINE ON THE LEFT WRIST G. 20 WITH IVF OF D5 0.45NS INFUSING AT 80ML/HR, PT IS ON 2L NASAL CANNULA O2 SATURATION IS AT 100%. DAUGHTER BRAYAN IS BY THE BEDSIDE. FALL PRECAUTION INITIATED, SIDE RAILS ARE UP AND CALL LIGHT WITHIN REACH, NO SIGN OF DISTRESS NOTED AND WILL MONITOR PT.
[2019-11-09 07:51] LABS: MAGNESIUM 1.8 mg/dL (1.8-2.4); PHOSPHORUS 3.1 mg/dL (2.5-4.9)
[2019-11-09 08:00] VITALS: BP 151/65
[2019-11-09] MEDS ORDERED: POTASSIUM CHLORIDE 10 MEQ TABER PO SCH (09:01)
[2019-11-09] MEDS ORDERED: FLUC200T PO (09:05)
[2019-11-09] MEDS: SENNA 8.6 MG TAB PO SCH (09:28)
[2019-11-09] MEDS: metFORMIN 500 MG TAB PO SCH (09:29)
[2019-11-09] MEDS: ATORVASTATIN 20 MG TAB PO SCH (09:30)
[2019-11-09] MEDS: OXYBUTYNIN 5 MG TAB PO SCH ×2 (09:30→21:18)
[2019-11-09] MEDS: FAMOTIDINE 20 MG TAB PO SCH (09:30)
[2019-11-09] MEDS: LISINOPRIL 10 MG TAB PO SCH (09:31)
[2019-11-09] MEDS: DOCUSATE SODIUM 100 MG GELCAP PO SCH ×2 (09:34→21:18)
--- NOTE | 2019-11-09 09:34 | NUR ---
PT IS AWAKE AND ON 2L O2 NC, SCHEDULED AM MEDICATIONS PARAMETERS CHECKED, PT TOLERATED WELL WITH APPLE SAUCE, DAUGHTER ON BEDSIDE, WILL MONITOR PT.
--- NOTE | 2019-11-09 09:34 | NUR ---
PT WAS GIVEN SCHEDULED AM MEDICATIONS NOW AND DAUGHTER ON THE BEDSIDE.
[2019-11-09] MEDS: FLUCONAZOLE 200 MG/NS PREMIX 100 ML IV SCH (09:36)
--- NOTE | 2019-11-09 10:23 | NUR ---
PT'S DAUGHTER DARIELA STATED THAT SHE WOULD LIKE TO HAVE THE SAME HOME HEALTH COMPANY ([facility]) TO PROVIDE CARE FOR HIS FATHER WHEN THE PT IS DISCHARGE HOME TODAY. DARIELA PROVIDED ME THE COMPANY # [phone]. SPOKE WITH JAY FROM [facility] ANSWERING SERVICE, STATED THAT THE BREASTER CREASING MACHINE OPERATOR WILL GIVE ME A CALL. AWAITING FOR CALL BACK. DR. TINOCO NOTIFIED.
--- NOTE | 2019-11-09 10:30 | NUR ---
PT WAS REPOSITIONED AND CLEANED NOW, WOUND ASSESSMENT DONE DRESSING DRY AND INTACT.
--- NOTE | 2019-11-09 12:09 | NUR ---
BLOOD GLUCOSE CHECK DONE TO PT NOW AND RESULT IS 117 AND NO INSULIN COVERAGE NEEDED.
[2019-11-09] MEDS: GAUZE TP SCH (13:00)
--- NOTE | 2019-11-09 13:12 | NUR ---
CALLED [facility], SPOKE WITH KISHAN- VEHICLE FARE COLLECTOR FIRE SPRINKLER FITTER (# [phone]) REGARDING PLACING AN ORDER FOR HOME AND FACILITY O2 DELIVERY. PER KISHAN, SHE WILL HAVE HER SUPERINTENDENT METERS CALL ME . AWAITING FOR CALL BACK.
--- NOTE | 2019-11-09 13:19 | NUR ---
[facility] [employer]AR[employer] DEVELOPER CALLED BACK STATED THAT THEY ARE NOT CONTRACTED WITH PT'S INSURANCE ( MEDICARE A&B). DR. TINOCO NOTIFIED.
--- NOTE | 2019-11-09 15:48 | NUR ---
CLINICALS FAXED TO [facility], CONFIRMATION ATTACHED TO PT'S CHART. CALLED [facility], SPOKE WITH MESSI, STATED THE [employer] DIV[employer] LIEUTENANT REP WILL RETURN MY CALL. AWAITING FOR CALL BACK.
[2019-11-09 16:00] VITALS: BP 97/51
--- NOTE | 2019-11-09 16:30 | NUR ---
BLOOD GLUCOSE CHECK DONE TO PT AND RESULT IS 134 AND NO INSULIN COVERAGE NEEDED.
--- NOTE | 2019-11-09 18:27 | NUR ---
ADDITIONAL CLINICALS FAXED TO [facility] REQUESTED BY PRISCA FLORES (ASSISTANT BRANCH MANAGER REP) REGARDING PT'S HOME OXYGEN CONCENTRATOR. FAX CONFIRMATION ATTACHED TO PT'S CHART. CALLED PRISCA, HE STATED THAT THEY WILL REVIEW PT'S INFORMATION/CHART AND WILL ME CALL BACK.
--- NOTE | 2019-11-09 18:35 | NUR ---
VITALS CHECKED ON PT. NASAL CANNULA WAS NOT PRESENT, SAO2 WAS BELOW NORMAL RANGE WITH 89%. DAUGHTER BY BEDSIDE NOTE THAT CANNULA WAS REMOVED AT 1500. NASAL CANNULA WAS REINSERTED WITH IMPROVED SAO2 OF 91%. CALL LIGHT WITHIN REACH AND WILL CONTINUE TO MONITOR.
--- NOTE | 2019-11-09 19:05 | NUR ---
RECD. RESTING IN BED, AWAKE, A/OX3. RESPIRATION EVEN AND UNLABORED. ON 02 AT 2 LITERS VIA N/C, SATURATING AT 99%. IV OF D51/2 NS AT 80 ML/HR INFUSING, LEFT HAND G20. SAFETY MEASURES ENFORCED. BED IN THE LOWEST POSITION, BED ON ALARM. PLAN OF CARE FOR THE SHIFT DISCUSSED WITH PATIENT AND DAUGHTER. VERBALIZED UNDERSTANDING. DENIES PAIN 0/10.
--- NOTE | 2019-11-09 19:18 | NUR ---
PRISCA FLORES FROM [facility] CALLED STATED THAT AFTER THEY REVIEWED PT'S CHART, THEY FOUND OUT THAT PT DON'T HAVE A QUALIFYING DIAGNOSIS FOR HOME OXYGEN. THEIR SUGGESTION IS FOR PT TO GO TO A SLEEP CENTER FOR SLEEP STUDY IF HE NEEDS A CPAP AT NIGHT AND WILL GO FROM THERE. DR. CAMPOS NOTIFIED.
--- NOTE | 2019-11-09 19:30 | NUR ---
ENDORSED PT TO HOME SERVICE CONSULTANT NURSEMYAH FOR CONTINUITY OF CARE.
[2019-11-09] MEDS ORDERED: SODIUM PHOSPHATE 118 ML ENEM RC SCH (19:50)
--- NOTE | 2019-11-09 21:15 | NUR ---
DUE PO MEDICATIONS GIVEN WITH APPLES SAUCE, NO SIGNS AND SYMPTOMS OF ASPIRATION NOTED.
[2019-11-10] VITALS: BP 128/62
--- NOTE | 2019-11-10 | NUR ---
SLEEPING COMFORTABLY IN BED.
--- NOTE | 2019-11-10 04:21 | NUR ---
NO BM FOR SIX DAYS NOW PER DAUGHTER, MEDICATED WITH DULCOLAX SUPPOSITORY.
[2019-11-10] MEDS: BLOOD GLUCOSE MONITORING 1 DEV DEV FS SCH ×3 (05:38→16:30)
[2019-11-10 06:31] LABS: BASOPHILS # (AUTO) 0.1 K/uL (0.00-0.22); BASOPHILS % (AUTO) 0.8 % (0.0-2.0); EOSINOPHILS # (AUTO) 0.7 K/uL (0-0.4); EOSINOPHILS % (AUTO) 8.6 % (0.0-4.0); HEMATOCRIT 32.1 % (36-52); HEMOGLOBIN 9.9 g/dL (12.0-18.0); LYMPHOCYTES # (AUTO) 2.2 K/uL (2.0-11.5); LYMPHOCYTES % (AUTO) 25.8 % (20.5-51.1); MEAN CORPUSCULAR HEMOGLOBIN 22 pg (27-31); MEAN CORPUSCULAR HGB CONC 31 g/dL (33-37); MEAN CORPUSCULAR VOLUME 70.9 fL (80-94); MONOCYTES # (AUTO) 0.7 K/uL (0.8-1.0); MONOCYTES % (AUTO) 7.7 % (1.7-9.3); NEUTROPHILS # (AUTO) 4.9 K/uL (1.8-7.7); NEUTROPHILS % (AUTO) 57.1 % (42.2-75.2); PLATELET COUNT (AUTO) 212 K/uL (140-450); RED BLOOD CELL COUNT(AUTO) 4.53 MIL/uL (4.20-6.10); WHITE BLOOD COUNT (AUTO) 8.6 K/uL (4.8-10.8)
[2019-11-10 06:39] LABS: CARBON DIOXIDE 24.6 mmol/L (21-32); CREATININE 1.3 mg/dL (0.6-1.3); POTASSIUM 3.6 mmol/L (3.5-5.1)
[2019-11-10 06:43] LABS: MAGNESIUM 1.6 mg/dL (1.8-2.4); PHOSPHORUS 3.2 mg/dL (2.5-4.9)
[2019-11-10] MEDS: ALBUTEROL SULFATE/IPRATROPIU 3 ML SOL IH SCH ×2 (06:56→13:15)
--- NOTE | 2019-11-10 07:20 | NUR ---
STILL NO BM. CONDITION REMAIN STABLE. ENDORSED TO AM SHIFT NURSE FOR CONTINUITY OF CARE.
--- NOTE | 2019-11-10 07:25 | NUR ---
RECEIVED BEDSIDE REPORT FROM KILN TESTER NURSE. PT IS AWAKE IN BED, ON 2L O2 NC, NO S/S OF DISTRESS, DAUGHTER IS AT BEDSIDE. FALL PRECAUTIONS IN PLACE. IV SITE NOTED ON THE L FA 22 G, INFUSING D5 1/2 NS 80 ML/HR. CALL LIGHT IS WITHIN REACH. WILL CONTINUE TO MONITOR.
[2019-11-10 08:00] VITALS: BP 152/68
[2019-11-10] MEDS: FAMOTIDINE 20 MG TAB PO SCH (09:22)
[2019-11-10] MEDS: FLUCONAZOLE 200 MG/NS PREMIX 100 ML IV SCH (09:22)
[2019-11-10] MEDS: DOCUSATE SODIUM 100 MG GELCAP PO SCH (09:23)
[2019-11-10] MEDS: SENNA 8.6 MG TAB PO SCH (09:23)
[2019-11-10] MEDS: ATORVASTATIN 20 MG TAB PO SCH (09:23)
[2019-11-10] MEDS: OXYBUTYNIN 5 MG TAB PO SCH (09:23)
[2019-11-10] MEDS: metFORMIN 500 MG TAB PO SCH (09:23)
[2019-11-10] MEDS: LISINOPRIL 10 MG TAB PO SCH (09:24)
--- NOTE | 2019-11-10 09:36 | NUR ---
AM MEDS ADMINISTERED WHOLE WITH APPLE SAUCE, PT TOLERATED WELL. DAUGHTER IS AT BEDSIDE. IV FLUCONAZOLE IS INFUSING.
[2019-11-10] MEDS: DEXT 5% / NACL 0.45% 1,000 ML IV SCH (09:45)
--- NOTE | 2019-11-10 11:30 | NUR ---
PT CLEANED, CHANGED AND REPOSITIONED. SO FAR STILL NO BM TODAY AFTER SUPPOSITORY GIVEN THIS AM. WILL CONTINUE TO MONITOR.
[2019-11-10] MEDS: GAUZE TP SCH (13:00)
[2019-11-10] MEDS ORDERED: BACL20TA4 PO (14:17)
[2019-11-10] MEDS ORDERED: MIRABULK PO (14:42)
--- NOTE | 2019-11-10 14:43 | NUR ---
DR WILLARD AWARE THAT PT HAS NOT HAD A BM IN 7 DAYS, PER DAUGHTER. DR WILLARD ORDERED A FLEET ENEMA AND ABD XRAY. PT HAVING ABD XRAY AT THIS TIME, AND WILL ADMINISTER ENEMA WHEN DONE.
--- NOTE | 2019-11-10 14:53 | NUR ---
APOKE WITH PT'S DAUGHTER AT BEDSIDE REGARDING HOW THE PT WILL GET HOME UP[place] TODAY, DAUGHTER STATES THAT PT NEEDS AN "AMBULANCE" TO GO HOME, BECAUSE HE IS UNABLE TO GO BY CAR. PT IS BEDBOUND AND IS UNABLE TO SIT UP SAFELY IN THE CAR. CHARISSE CAM AND DR WILLARD ARE AWARE.
[2019-11-10] MEDS ORDERED: MAGNESIUM OXIDE 400 MG TAB PO SCH (15:00)
[2019-11-10] MEDS ORDERED: SODIUM PHOSPHATE 118 ML ENEM RC SCH (15:00)
--- NOTE | 2019-11-10 15:12 | NUR ---
FLEET ENEMA ADMINISTERED PER MD ORDER.
[2019-11-10 16:00] VITALS: BP 114/58
--- NOTE | 2019-11-10 18:10 | NUR ---
PT HAD A SMALL AMOUNT OF LIQUID STOOL IMMEDIATELY BEFORE ENEMA WAS ADMINISTERED. PT DID NOT HAVE ANY BM AFTER THE ENEMA. DR WILLARD IS AWARE.
[2019-11-10] MEDS ORDERED: MAGNESIUM OXIDE 400 MG TAB ONE ×2 (18:22→18:30)
[2019-11-10] MEDS ORDERED: BISA-213 RC (18:41)
--- NOTE | 2019-11-10 19:08 | NUR ---
PT GIVEN DC INSTRUCTIONS AND PRESCRIPTION. FAMILY VERBALIZED UNDERSTANDING OF DC TEACHING. [employer] [facility] COMING TO PICK PT UP AT 19:30. IV REMOVED. PT IS DRESSED AND READY TO DC. FAMILY PACKED UP ALL PT'S BELONGINGS.
--- NOTE | 2019-11-10 19:25 | NUR ---
PT HAS DC'D IN STABLE CONDITION
== END 2019-11-10 19:25 | disposition home health service (06) | DRG 917 ==
LOC: MED 08:38 → MMU 11:48
PROVIDERS: ADMIT General Practice; ATTEND General Practice
PROC: 5A09357 Assistance with Respiratory Ventilation, Less than 24 Consecutive Hours, Continuous Positive Airway Pressure (ICD-10-PCS; principal; 2019-11-05)
DX: T50.901A Poisoning by unspecified drugs, medicaments and biological substances, accidental (unintentional), initial encounter (principal); J96.01 Acute respiratory failure with hypoxia; G93.41 Metabolic encephalopathy; J96.02 Acute respiratory failure with hypercapnia; B37.49 Other urogenital candidiasis; G82.22 Paraplegia, incomplete; I12.9 Hypertensive chronic kidney disease with stage 1 through stage 4 chronic kidney disease, or unspecified chronic kidney disease; E11.22 Type 2 diabetes mellitus with diabetic chronic kidney disease; E78.00 Pure hypercholesterolemia, unspecified; G47.33 Obstructive sleep apnea (adult) (pediatric); N18.9 Chronic kidney disease, unspecified; N20.0 Calculus of kidney; E78.5 Hyperlipidemia, unspecified; E11.40 Type 2 diabetes mellitus with diabetic neuropathy, unspecified; F01.50 Vascular dementia, unspecified severity, without behavioral disturbance, psychotic disturbance, mood disturbance, and anxiety; L89.152 Pressure ulcer of sacral region, stage 2; D63.8 Anemia in other chronic diseases classified elsewhere; R33.9 Retention of urine, unspecified; N31.9 Neuromuscular dysfunction of bladder, unspecified; Y92.89 Other specified places as the place of occurrence of the external cause; Z88.1 Allergy status to other antibiotic agents; Z88.8 Allergy status to other drugs, medicaments and biological substances; Z79.84 Long term (current) use of oral hypoglycemic drugs; Z79.899 Other long term (current) drug therapy
CPT/HCPCS: 36415; 36600; 70450; 71045; 74022; 80048; 80053; 80202; 81001; 82140; 82803; 82948; 83036; 83605; 83690; 83735; 83880; 84100; 84443; 84484; 85025; 85610; 85730; 87040; 87081; 87086; 92610; 93005; 94640; 94660; 96361; 96365; 96375; 99291; J0692; J0696; J1450; J1644; J1815; J2060; J3370; J7060; J7620; Q0092